=== PATIENT | female | born 1940 | race Caucasian/White ===

== ENCOUNTER 2017-05-15 07:54 | Day surgery (SDC) | payer OTHER ==
[~2017-05-15] VITALS: Ht 165.1 cm; Wt 80.7 kg
[2017-05-15] MEDS ORDERED: ASPI-110 PO (08:40)
[2017-05-15] MEDS ORDERED: IRON18TA PO (08:40)
[2017-05-15] MEDS ORDERED: PRAV80TA2 PO (08:40)
[2017-05-15] MEDS ORDERED: GARL1CAP6 PO (08:40)
[2017-05-15] MEDS ORDERED: LEVO25TA4 PO (08:40)
[2017-05-15] MEDS ORDERED: VITA2000 PO (08:40)
[2017-05-15] MEDS ORDERED: KRIL1000 PO (08:40)
[2017-05-15] MEDS ORDERED: VITA250T3 PO (08:40)
[2017-05-15] MEDS ORDERED: LISI20TA3 PO (08:40)
[2017-05-15] MEDS ORDERED: MULT1TAB46 PO (08:40)
[2017-05-15] MEDS ORDERED: AMLO5TAB2 PO (08:40)
[2017-05-15] MEDS ORDERED: METO50TA11 PO (08:41)
[2017-05-15] MEDS ORDERED: NS 1000P @30 MLS/HR (KVO) IV SCH (09:00)
[2017-05-15 09:05] VITALS: BP 142/71; PULSE 70; RESP 17; TEMP 98.9; O2SAT 94
[2017-05-15 09:26] LABS: AUTOMATED NEUTROPHIL # 3.6 TH/MM3 (1.8-7.7); BASOPHIL % 0.8 % (0.0-2.0); EOSINOPHIL # 0.1 TH/MM3 (0-0.4); HEMO FLAGS DIFF FINAL; LYMPH % 27.5 % (9.0-44.0); LYMPHOCYTE # 1.6 TH/MM3 (1.0-4.8); MEAN CELL VOLUME 78.7 FL (80.0-100.0); MEAN CORPUSCULAR HEMOGLOBIN 26.3 PG (27.0-34.0); MEAN CORPUSCULAR HGB CONC 33.4 % (32.0-36.0); MONO % 8.7 % (0.0-8.0); PLATELET COUNT 184 TH/MM3 (150-450); RED BLOOD COUNT 5.08 MIL/MM3 (4.00-5.30); RED CELL DISTRIBUTION WIDTH 20.5 % (11.6-17.2)
[2017-05-15 09:32] LABS: APTT (PATIENT) 26.9 SEC (24.3-30.1); INTERNATIONAL NORMALIZED RATIO 1.1 RATIO; PROTHROMBIN TIME - PATIENT 11.7 SEC (9.8-11.6)
[2017-05-15 09:36] LABS: BICARBONATE 27.8 MEQ/L (21.0-32.0); POTASSIUM 3.9 MEQ/L (3.5-5.1)
[2017-05-15] MEDS ORDERED: NITROGLYCERIN INJ 5 ML ONE (09:51)
[2017-05-15] MEDS ORDERED: VERAPAMIL HCL 5 MG/2 ML VIAL ONE (09:51)
[2017-05-15] MEDS ORDERED: MIDAZOLAM HCL 2 MG/2 ML VIAL ONE (09:51)
[2017-05-15] MEDS ORDERED: HEPARIN SODIUM - IV 10,000 UNITS/10 ML VIAL ONE (09:51)
[2017-05-15] MEDS ORDERED: HEPARIN-NS/PF INJ 500 ML ONE (09:51)
[2017-05-15] MEDS ORDERED: IOHEXOL 350 MG/ML 50 ML BTL (for Cath Lab) OTHER ONE (10:35)
--- NOTE | 2017-05-15 11:22 | CATHPROC ---
[facility] Report Study Information Study Number Admission Scheduled Start Study Start [id number] May 15 2017 7:54AM 05/15/2017 May 15 2017 9:41AM Study Type [place] Service Left/Possible PCI Cardiac Catheterization Admit Source Facility Department Other [facility] - Optomechanical Technician Physician and Clinical Staff Initial Xavier Navarro Ct Mri TechnologistOfe Shaffer,RN Ct Mri Technologistmiguelina Mi RN, Reynold RecordSherry Mai,CHIEF SOLUTION ARCHITECT TECH2 Scrub Liane Nicholas,RT(R) (BS) Procedures Performed Procedure Location (Site) Vessel Name Coronary Angiograms LCA Left Coronary Coronary Angiograms RCA Right Coronary L Heart Cath Equipment Time Guest Service Representative Description Size Mfg Part Number Used/Scraped TRANSDUCER, TRUWAVE [id number] 10:38 Swoop GARCIA * Used W/STOCKCOCK *[id number] 534-545T *[id number] 534-548T *[id number] 534-518T *[id number] 534-521T *[id number] 534-542T *[id number] 10:38 [employer] PACK, CCL CUSTOM * Used *[id number] 10:38 [employer] SUPPORT, ARTERIAL ADULT [id number] Used BAND, RADIAL COMPRESSION TR [id number] 11:10 Omniox 24CM Used SHORT 24 *[id number] 10:38 [employer] WIRE, 3MMJ .035 180CM 180CM Used *[id number] 10:38 NAMIC MANIFOLD, 4 PORT * Used *[id number] 10:38 [employer] OMNIPAQUE, 350 MG, 150ML 150ML [id number] Used [id number] 10:38 [facility] BLANKET,WARM AIR CCL * Used *[id number] SHEATH, FR6 TRANSRADIAL 10:38 Branded Reality FR 6 RM*[id number] Used SLENDER 10CM History: Current Medications Medication Dosage/Unit Route Frequency Last Date/Time Taken Statins (any) Synthroid NORVASC LISINOPRIL VITAMIN D LOPRESSOR ASA History: Allergies Allergy Reaction No Known Allergies History: Risk Factors Family History of Hypertension Dyslipidemia Previous NE Previous Heart Failure Premature CAD Yes Yes No No No Prior Valve Prior PCI Prior CABG Surgery No No No Cerebrovascular Peripheral Artery Chronic Lung On Dialysis Diabetes Disease Disease Disease No No No No No History: Stress Tests Stress or Imaging Studies Performed No History: Other Disease Selection Items Renal Failure/Insufficiency History: Other Current Smoker Method Quit Packs a Day Years Used Pack Years No Cigarettes 50 Years Ago 1 5 5 Labs Hgb (g/dl) Hct (%) RBC (MIL/MM3) WBC (l/cumm) Platelets (thousands) 11.60-17.00 35.00-51.00 4.00-5.90 4.00-11.00 150.00-450.00 13.4 40 5 6 184 Glucose (mg/dl) BUN (mg/dl) Creatinine (mg/dl) BUN:Creatinine (1:x) 74.00-106.00 7.00-18.00 0.50-1.30 10.00-20.00 101 27 1.1 24.5 Na (meq/l) K (meq/l) Cl (meq/l) CO2 (mmol/L) Ca (mg/dl) 136.00-145.00 3.50-5.10 98.00-107.00 21.00-32.00 8.50-10.10 139 3.9 104 27.8 9.2 PT (sec) PTT (sec) INR (PTT:PT) 9.80-11.60 24.30-30.10 0.90-1.10 11.7 26.9 1.1 CPK-MB (ng/ML) 0.50-3.60 Not Drawn Medication Medication Total Dose (Bolus/Oral) Medication Total Dosage/Unit 1% XYLOCAINE 20 mL FENTANYL 100 mcg OXYGEN 2 l/min RADIAL COCKTAIL 5 mL (Bolus) VERSED 2 mg Medications (Bolus/Oral) Medication Time Given Dosage/Unit Administered By Reason VERSED 05/15/2017 10:33:38 AM 1 mg Ofe Lockwood 1 mg VERSED given in lab by Ofe Lockwood, RN in Left Forearm via Peripheral IV. Ordered by Xavier Mayes. FENTANYL 05/15/2017 10:34:01 AM 50 mcg Ofe Lockwood 50 mcg FENTANYL given in lab by Ofe Lockwood, RN in Left Forearm via Peripheral IV. Ordered by Xavier Cortez. 1% XYLOCAINE 05/15/2017 10:35:11 AM 20 mL Xavier Coreas 20 mL 1% XYLOCAINE given in lab by Xavier Coreas in Right Radial via Subcutaneous. Ordered by Xavier Cortez. VERSED 05/15/2017 10:36:15 AM 1 mg Ofe Lockwood 1 mg VERSED given in lab by Ofe Lockwood RN in Left Forearm via Peripheral IV. Ordered by Xavier Mayes. Ntg 200mcg Verapamil 2.5mg Heparin RADIAL COCKTAIL 05/15/2017 10:36:59 AM 5 mL (Bolus) Xavier Coreas 2500U 5 mL (Bolus) RADIAL COCKTAIL given in lab by Xavier Croeas in Right Radial via Radial. Using [Christiana ution Name]. Ordered by Xavier Coreas. Reason: Ntg 200mcg Verapamil 2.5mg Heparin 2500U. FENTANYL 05/15/2017 10:37:20 AM 50 mcg Ofe Lockwood 50 mcg FENTANYL given in lab by Ofe Lockwood, ED in Left Forearm via Peripheral IV. Ordered by Xavier Cortez. OXYGEN 05/15/2017 10:38:41 AM 2 l/min Ofe Lockwood 2 l/min OXYGEN given in lab by Ofe Lockwood, ED via Nasal. Ordered by Xavier Coreas. Medication (Drip) Medication Time Given Dosage/Unit Concentration/Unit Diluent (ml) Solution IV Solutions 05/15/2017 9:51:06 AM 0 mL (IV) 500 NaCl .9 Patient arrived on IV Solutions in Left Forearm via Peripheral IV. Pump/Drip Flow = 20 ml/hr using Na Cl .9. IV Solutions 05/15/2017 9:52:30 AM 0 mL (IV) 500 NaCl .9 Patient arrived on IV Solutions in Left Forearm via Peripheral IV. Pump/Drip Flow = 125 ml/hr using N aCl .9. Ordered by Xavier Coreas. Initial Case Assessment Cardiovascular HR NIBP Chest Pain 80 131/69 0 Circulatory - Right Pulses Dorsalis Pedis Femoral Radial 1 2 2 Scale (0,1,2,3,4,d) Scale (0,1,2,3,4,d) Neurological State Oriented to time-place- Alert Moves all extremities person Respiration - General Respiration Rate SpO2 (%) (B/min) 16 99 Final Case Assessment Cardiovascular HR Rhythm NIBP Chest Pain 68 sr 111/52 0 Circulatory - Right Pulses Dorsalis Pedis Femoral Radial 1 2 2 Scale (0,1,2,3,4,d) Scale (0,1,2,3,4,d) Neurological State Oriented to time-place- Alert Moves all extremities person Respiration - General Respiration Rate SpO2 (%) O2 (lpm) (B/min) 16 96 2 Chronological Log Time Study Chronological Log 9:45:42 Patient arrived via Bed. 9:45:43 Patient Name, D.O.B, / Armband Verified By R.N. 9:48:44 Consent signed by the physician and the patient and verified by the Optomechanical Technician staff. 9:48:45 Pre-op and post- op instructions given; patient acknowledges understanding of instructions. 9:48:46 Verbal Stimulation=2 Physical Stimulation=2 Airway=2 Respiration=2 TOTAL=8. (0=absent, 1=li mited, 2=present) 9:48:48 Presedation assessment performed by Optomechanical Technician RN. 9:48:49 Allens test performed on the right radial and ulnar artery. 9:48:51 Patient has been NPO for More than 6Hrs. 9:48:53 Skin Breakdown-none 9:48:56 [place] Prominences Protected Vitals capture started with the following parameters, Patient=Adult, Interval=5 min, Initial Pr fdwnjk=098 mmHg, 9:49:53 Deflation Rate=5 mmHg 9:50:29 HR=84 bpm, DOYN=309/69 mmhg, OzA2=409.0 %, Resp=9 B/min, Pain=0, Gonzalez=2 9:51:04 A # 20 IV was noted in the Forearm (left). Grade = patent 9:51:06 Patient arrived on IV Solutions in Left Forearm via Peripheral IV. Pump/Drip Flow = 20 ml/hr using NaCl .9. Patient arrived on IV Solutions in Left Forearm via Peripheral IV. Pump/Drip Flow = 125 ml/hr u sing NaCl .9. Ordered 9:52:30 by Xavier Coreas. 9:53:12 History and physical on the chart or being dictated. Assessment: Initial Case, HR=80 BPM, ECRU=918/69 mmhg, Chest Pain=0 Right Pulses: Josué Ped=1, Femoral=2, Radial=2 9:53:13 Neurological: State=Alert, Ox3, BELTRAN Respiration: Resp=16 B/min, SpO2=99 % 9:53:16 Reference ECG taken 9:55:32 HR=80 bpm, LEJP=020/60 mmhg, SpO2=98.0 %, Resp=17 B/min 10:00:31 HR=77 bpm, BBZX=471/64 mmhg, SpO2=99.0 %, Resp=10 B/min 10:04:26 Right groin and right wrist prepped with 2% chlorhexidine, and draped after a 3 min. waitin g time. 10:05:28 HR=76 bpm, YTUY=336/68 mmhg, SpO2=98.0 %, Resp=10 B/min 10:08:17 MD paged 10:10:31 HR=71 bpm, XJYJ=259/59 mmhg, SpO2=97.0 %, Resp=12 B/min 10:10:32 Pressure channel 1 zeroed. 10:15:30 HR=67 bpm, ECXM=562/60 mmhg, SpO2=95.0 %, Resp=12 B/min 10:20:29 HR=68 bpm, FVTI=498/59 mmhg, SpO2=94.0 %, Resp=14 B/min 10:25:32 HR=75 bpm, ICZU=284/57 mmhg, SpO2=98.0 %, Resp=10 B/min 10:31:06 HR=66 bpm, MFAY=454/48 mmhg, SpO2=94.0 %, Resp=14 B/min 10:32:32 MD arrived. 10:33:38 1 mg VERSED given in lab by Ofe Lockwood RN in Left Forearm via Peripheral IV. Ordered by Xavier Coreas. 50 mcg FENTANYL given in lab by Ofe Lockwood RN in Left Forearm via Peripheral IV. Ordered by Lyudmila 10:34:01 Xavier. 10:34:39 Presedation re-assessment performed by Optomechanical Technician RN. Time Out. Correct patient, correct procedure,correct physician, power injector not loaded with contrast with surgical 10:34:41 team present. Time Out Concurred by MD and individual staff in procedure 10:35:10 Case Start 20 mL 1% XYLOCAINE given in lab by Xavier Coreas in Right Radial via Subcutaneous. Ordered by Lyudmila, 10:35:11 Xavier. 10:35:32 HR=63 bpm, GROB=236/54 mmhg, SpO2=92.0 %, Resp=16 B/min 10:36:15 1 mg VERSED given in lab by Ofe Lockwood, ED in Left Forearm via Peripheral IV. Ordered by Xavier Coreas. 10:36:23 Access site was Radial Artery. right A SHEATH, FR6 TRANSRADIAL SLENDER 10CM FR 6 was advanced into the Radial (right) using the Perc utaneous 10:36:52 technique. 5 mL (Bolus) RADIAL COCKTAIL given in lab by Xavier Coreas in Right Radial via Radial. Usin g [Solution Name]. 10:36:59 Ordered by Xavier Coreas. Reason: Ntg 200mcg Verapamil 2.5mg Heparin 2500U. 50 mcg FENTANYL given in lab by Ofe Lockwood, ED in Left Forearm via Peripheral IV. Ordered by Lyudmila, 10:37:20 Xavier. A JR 4.0 INFINITI CATHETER FR 5 was advanced over a wire. OMNIPAQUE, 350 MG, 150ML 150ML was us ed for 10:37:36 injections. 10:38:41 2 l/min OXYGEN given in lab by Ofe Lockwood, ED via Nasal. Ordered by Xavier Coreas. 10:39:25 NIBP STAT measurement started. 10:40:01 HR=69 bpm, NIBP=79/46 mmhg, SpO2=90.0 %, Resp=10 B/min Recorded Pressure: Ao, HR=66, Condition=Condition 1 10:41:12 (Aorta) Ao 84/49/63 10:41:54 Catheter was removed A JL 3.5 INFINITI CATHETER FR 5 was advanced over a wire. OMNIPAQUE, 350 MG, 150ML 150ML was us ed for 10:42:03 injections. 10:43:55 The LCA was injected and visualized at various angles. OMNIPAQUE, 350 MG, 150ML 150ML used . 10:46:01 HR=76 bpm, BVZX=248/59 mmhg, SpO2=95.0 %, Resp=13 B/min After removing the current catheter a AR MOD INFINITI CATHETER FR 5 was advanced over a WIRE, 3 MMJ .035 180CM 10:47:01 180CM. 10:50:31 HR=69 bpm, TIAO=201/57 mmhg, SpO2=94.0 %, Resp=14 B/min After removing the current catheter a AL 1 INFINITI CATHETER FR 5 was advanced over a WIRE, 3MM J .035 180CM 10:50:39 180CM. Unable to cannulate RCA After removing the current catheter a JR 4.0 INFINITI CATHETER FR 5 was advanced over a WIRE, 3 MMJ .035 180CM 10:53:24 180CM. Unable to cannulate RCA 10:55:32 HR=71 bpm, EJQD=582/62 mmhg, SpO2=95.0 %, Resp=14 B/min After removing the current catheter a MPA-2 INFINITI CATHETER FR 5 was advanced over a WIRE, 3M MJ .035 180CM 10:59:25 180CM. 11:00:36 HR=67 bpm, ULCY=690/52 mmhg, SpO2=95.0 %, Resp=14 B/min 11:00:44 The RCA was injected and visualized at various angles. OMNIPAQUE, 350 MG, 150ML 150ML used . 11:03:11 Catheter was removed 11:03:36 Case End Assessment: Final Case, HR=68 BPM, Rhythm=sr, MIJZ=358/52 mmhg, Chest Pain=0 Right Pulses: Josué Ped=1, Femoral=2, Radial=2 11:05:26 Neurological: State=Alert, Ox3, BELTRAN Respiration: Resp=16 B/min, SpO2=96 %, O2=2 lpm 11:05:35 HR=65 bpm, OSUR=706/52 mmhg, SpO2=96.0 %, Resp=16 B/min, Pain=0, Gonzalez=2 Radial Compression Device Used. 11 mLs of air placed in BAND, RADIAL COMPRESSION TR SHORT 24 24 CM. Affected 11:08:31 hand 97 % O2 saturation. 11:10:36 UPDD=673/47 mmhg, SpO2=97 % 11:11:03 No case complications noted. 11:11:05 Cine recording checked. 11:11:07 Bedside Report will be given. 11:11:09 Vitals capture stopped. 11:11:18 A Left Heart Cath was performed. 11:13:22 Patient moved to bed 11:15:26 Patient transported to DOCU End Study - Contrast Media Used In Study Contrast Total Opened (mL) Total Used (mL) Total Wasted (mL) Omnipaque 20 20 0 End Study - Maximum Contrast Load Max Contrast Load (mL) 366.7 End Study - Radiation Exposure Fluoro Time (minutes) 14.1 End Study - Sheaths Sheaths Pulled By Sheath Hold Time (min) Liane Nicholas End Study - Patient Disposition Complications Transferred To Telemetry Bed
[2017-05-15] MEDS ORDERED: ONDANSETRON HCL 4 MG/2 ML VIAL ONE (11:23)
--- NOTE | 2017-05-15 11:38 | MA ---
cc: ARYAN BILL DATE 05/15/2017 PROCEDURE PERFORMED 1. Left heart catheterization 2. Selective right and left coronary angiography PROCEDURE DESCRIPTION Consent is signed and the patient was brought into the cardiac labor relations officer in a fasting state. The right wrist and groin were prepped and draped in a sterile fashion using 1% lidocaine for local anesthesia. Using a micropuncture kit, a 6- Lao sheath was inserted into the right radial artery. Antispasmodic cocktail was given, then selective right and left coronary angiography was performed with a JL-3.5 and multiple portal catheters. Angiography was taken in multiple views. The aortic valve was not crossed given the patient has known severe aortic stenosis. The patient tolerated the procedure well without complications. Estimated blood loss less than 30 cc. TOTAL CONTRAST USED 20 cc The access site was closed with a TR band. Indication: Severe aortic stenosis/preoperative evaluation for AVR ANGIOGRAPHIC RESULTS 1. Left main is calcified, patent with BRYSON-III flow. 2. LAD is a transapical vessel. It has a significant 90% lesion in the proximal segment. This lesion is long and Aneurysmatic. The vessel has BRYSON- III flow. The diagonals are patent with BRYSON-III flow. 3. Left circumflex artery is a big vessel with minimal luminal irregularities. No obstructive coronary artery disease. It has three OM branches. The first two OM's are small, However the third one is big going all the way to the lateral wall and has nonobstructive coronary artery disease and BRYSON-III flow. 4. A small ramus vessel which is patent with BRYSON-III flow nonobstructive coronary artery disease. 5. The right coronary artery is a dominant vessel giving off blood supply to the PDA and has minimal luminal Irregularities. No significant obstructions. There are some small collaterals from the PDA giving blood supply to the proximal LAD to the septales. CONCLUSION 1. Severe symptomatic aortic stenosis. 2. Single vessel CAD of the proximal LAD. RECOMMENDATIONS The case was discussed with CT surgery, Dr. Kuhn for CABG and AVR. MD TRELL Rodríguez/RANJAN /11:21 AM /11:31 AM MTDD
--- NOTE | 2017-05-15 12:56 | PD.CONS ---
History of Present Illness Service CT Surgery Consult Requested By Dr. Parekh Reason for Consult CAD, aortic stenosis, aortic regurgitation, dyspnea Primary Care Physician Tsering Berumen MD Diagnoses: (1) Aortic stenosis (2) CAD (coronary artery disease) (3) Diastolic CHF due to valvular disease History of Present Illness 76y/o female presents for evaluation of a heart murmur. She has been followed for many years and a recent echo showed severe , mild AI as well as LVH. She underwent left heart cath by Dr. Parekh today and was found to have severe proximal LAD CAD. She denies exertional dyspnea, chest pain, palpitations, PND , orthopnea. She is being considered for AVR/CABG. Review of Systems Constitutional: COMPLAINS OF: Fatigue, DENIES: Diaphoretic episodes, Fever, Weight gain, Weight loss, Chills, Dizziness, Change in appetite, Night Sweats Endocrine: DENIES: Abnorml menstrual pattern, Heat/cold intolerance, Polydipsia , Polyuria, Polyphagia Eyes: DENIES: Blurred vision, Diplopia, Eye inflammation, Eye pain, Vision loss , Photosensitivity, Double Vision Ears, nose, mouth, throat: DENIES: Tinnitus, Hearing loss, Vertigo, Nasal discharge, Oral lesions, Throat pain, Hoarseness, Ear Pain, Running Nose, Epistaxis, Sinus Pain, Toothache, Odynophagia Respiratory: DENIES: Apneas, Cough, Snoring, Wheezing, Hemoptysis, Sputum production, Shortness of breath Cardiovascular: DENIES: Chest pain, Palpitations, Syncope, Dyspnea on Exertion , PND, Lower Extremity Edema, Orthopnea, Claudication Gastrointestinal: DENIES: Abdominal pain, Black stools, Bloody stools, Constipation, Diarrhea, Nausea, Vomiting, Difficulty Swallowing, Anorexia Genitourinary: DENIES: Abnormal vaginal bleeding, Dysmenorrhea, Dyspareunia, Sexual dysfunction, Urinary frequency, Urinary incontinence, Urgency, Hematuria , Dysuria, Nocturia, Vaginal discharge Musculoskeletal: DENIES: Joint pain, Muscle aches, Stiffness, Joint Swelling, Back pain, Neck pain Integumentary: DENIES: Abnormal pigmentation, Pruritus, Rash, Nail changes, Breast masses, Breast skin changes, Nipple discharge Hematologic/lymphatic: DENIES: Bruising, Lymphadenopathy Immunologic/allergic: DENIES: Eczema, Urticaria Neurologic: DENIES: Abnormal gait, Headache, Localized weakness, Paresthesias, Seizures, Speech Problems, Tremor, Poor Balance Psychiatric: DENIES: Anxiety, Confusion, Mood changes, Depression, Hallucinations, Agitation, Suicidal Ideation, Homicidal Ideation, Delusions Past Family Social History Allergies: Coded Allergies: No Known Allergies (Unverified , 05/15/17) Past Medical History AAA HTN DM - she states borderline hyperlipidemia arthritis Reported Medications Amlodipine 5mg po qd ASA 81mg po qd Iron 159mg po qd krill oil Levothyroxine 25 mcg po qd Lisinopril-HCTZ 20/25 half po qd Toprol XL 50mg po qd MVI 1 po qd Pravastatin 80mg po qd Vit C Vit D Family History Denies CAD, valve disease, cancer Social History Remote smoking hx Denies ETOH Physical Exam Vital Signs Vital Signs Date Time Temp Pulse Resp B/P Pulse Ox O2 Delivery O2 Flow Rate FiO2 05/15/17 09:05 98.9 70 17 142/71 94 Physical Exam GENERAL: This is a well-nourished, well-developed patient, in no apparent distress. SKIN: No rashes, ecchymoses or lesions. Cool and dry. HEAD: Atraumatic. Normocephalic. No temporal or scalp tenderness. EYES: Pupils equal round and reactive. Extraocular motions intact. No scleral icterus. No injection or drainage. ENT: Nose without bleeding, purulent drainage or septal hematoma. Throat without erythema, tonsillar hypertrophy or exudate. Uvula midline. Airway patent. NECK: Trachea midline. No JVD or lymphadenopathy. Supple, nontender, no meningeal signs. CARDIOVASCULAR: Regular rate and rhythm with 2/6 MIGUEL ANGEL at the RUSB. RESPIRATORY: Clear to auscultation. Breath sounds equal bilaterally. No wheezes , rales, or rhonchi. GASTROINTESTINAL: Abdomen soft, non-tender, nondistended. No hepato-splenomegaly , or palpable masses. No guarding. MUSCULOSKELETAL: Extremities without clubbing, cyanosis, or edema. No joint tenderness, effusion, or edema noted. No calf tenderness. Negative Homans sign bilaterally. NEUROLOGICAL: Awake and alert. Cranial nerves II through XII intact. Motor and sensory grossly within normal limits. Five out of 5 muscle strength in all muscle groups. Normal speech. Laboratory Laboratory Tests Test 05/15/17 08:58 White Blood Count 6.0 Red Blood Count 5.08 Hemoglobin 13.4 Hematocrit 40.0 Mean Corpuscular Volume 78.7 Mean Corpuscular Hemoglobin 26.3 Mean Corpuscular Hemoglobin 33.4 Concent Red Cell Distribution Width 20.5 Platelet Count 184 Mean Platelet Volume 8.2 Neutrophils (%) (Auto) 61.0 Lymphocytes (%) (Auto) 27.5 Monocytes (%) (Auto) 8.7 Eosinophils (%) (Auto) 2.0 Basophils (%) (Auto) 0.8 Neutrophils # (Auto) 3.6 Lymphocytes # (Auto) 1.6 Monocytes # (Auto) 0.5 Eosinophils # (Auto) 0.1 Basophils # (Auto) 0.0 CBC Comment DIFF FINAL Differential Comment Prothrombin Time 11.7 Prothromb Time International 1.1 Ratio Activated Partial 26.9 Thromboplast Time Sodium Level 139 Potassium Level 3.9 Chloride Level 104 Carbon Dioxide Level 27.8 Anion Gap 7 Blood Urea Nitrogen 27 Creatinine 1.14 Estimat Glomerular Filtration 46 Rate Random Glucose 101 Calcium Level 9.2 Result Diagram: 05/15/17 0858 05/15/17 0858 Imaging Left heart cath was remarkable for 90% proximal LAD lesion Course She underwent uneventful LHC today. Assessment and Plan Problem List: (1) Aortic stenosis Status: Acute (2) CAD (coronary artery disease) Status: Acute (3) Diastolic CHF due to valvular disease Status: Acute Assessment and Plan Based on her presentation and findings, AVR/CABG is recommended. Risks and benefits were explained as summarized below and she agrees to proceed. Plan for surgery 05/27/17. RISK SCORES About the STS Risk Calculator Procedure: AV Replacement + CAB Risk of Mortality: 2.453% Morbidity or Mortality: 17.919% Long Length of Stay: 8.579% Short Length of Stay: 28.902% Permanent Stroke: 2.173% Prolonged Ventilation: 11.52% DSW Infection: 0.377% Renal Failure: 5.424% Reoperation: 7.264% Problem Qualifiers (1) Aortic stenosis: Qualified Code: I35.0 - Aortic valve stenosis, unspecified etiology (2) CAD (coronary artery disease): Qualified Code: I25.118 - Coronary artery disease involving [place] coronary artery of [place] heart with other form of angina pectoris Adriana Kuhn MD May 15, 2017 12:56
[2017-05-15 15:38] LABS: BLOOD, URINE NEG (NEG); COMMENT (UR) CULT NOT INDICATED; CULTURE IF INDICATED CULT NOT INDICATED; GLUCOSE,URINE NEG (NEG); HYALINE CAST, URINE 1 /lpf (RARE); KETONE, URINE NEG (NEG); MUCUS URINE FEW /lpf (OCC); NITRITE,URINE NEG (NEG); URINE COLOR YELLOW (YELLW/STRAW)
[2017-05-15] MEDS ORDERED: METOPROLOL TARTRATE 25 MG TAB PO SCH (15:45)
[2017-05-15] MEDS ORDERED: PAPAVERINE INJ 60 MG, NITROGLYCERIN INJ 100 MCG, DILTIAZEM INJ 100 MG in SODIUM CHLORID... IRRIGATION SCH (15:45)
[2017-05-15] MEDS ORDERED: CEFAZOLIN INJ 500 MG in SODIUM CHLORIDE 0.9% IRR BTL 500 ML IRRIGATION SCH (15:45)
[2017-05-15] MEDS ORDERED: CHLORHEXIDINE GLUCONATE 4% SOLN 120 ML BTL TOPICAL SCH (15:45)
[2017-05-15] MEDS ORDERED: ceFAZolin 2 GM PREMIX 50 ML IV SCH (15:45)
[2017-05-15] MEDS ORDERED: SODIUM CHLORIDE 0.9% FLUSH 10 ML FLUSH IV FLUSH PRN (15:45)
[2017-05-15] MEDS ORDERED: INSULIN REGULAR (IV INFUSION) 100 UNITS in SODIUM CHLORIDE 0.9% INJ 100 ML IV SCH (15:45)
--- NOTE | 2017-05-15 16:10 | EKG ---
Date Performed: 05/15/2017 Time Performed: 09:21:00 PTAGE: 76 years EKG: Sinus rhythm Lateral ST-T changes may be due to myocardial ischemia Abnormal ECG NO PREVIOUS TRACING DOCTOR: Elizabeth Wasserman Interpretating Date/Time 05/15/2017 16:09:28
[2017-05-15 17:12] LABS: INDIRECT BILIRUBIN 0.3 MG/DL (0.0-0.8); TOTAL BILIRUBIN ADULT 0.4 MG/DL (0.2-1.0)
--- NOTE | 2017-05-15 17:36 | RADRPT ---
EXAM DATE/TIME: 05/15/2017 16:55 [facility] COMPARISON: No previous studies available for comparison. INDICATIONS : Evaluate for pneumonia, pneumothorax or communicable disease. Pre op heart surgery MEDICAL HISTORY : None. SURGICAL HISTORY : None. ENCOUNTER: Initial ACUITY: 1 day PAIN SCORE: 0/10 LOCATION: Bilateral chest FINDINGS: The exam demonstrates 2 pulmonary nodules is 1.5 mm nodule on the right and 1.7 mm nodule on the left . CT imaging to exclude malignancy as warranted. The heart is normal in size. The mediastinal contours are within normal limits. CONCLUSION: 1. There are bilateral pulmonary nodules. CT imaging to exclude malignancy as warranted. Davidson Jordan MD on May 15, 2017 at 17:28 Board Certified Radiologist. This report was verified electronically.
--- NOTE | 2017-05-15 19:38 | RADRPT ---
EXAM DATE/TIME: 05/15/2017 15:26 [facility] COMPARISON: No previous studies available for comparison. INDICATIONS : Pre op cardiac surgery. MEDICAL HISTORY : Congestive heart failure. Aneurysm, abdominal. Hypothyroidism. Hypertension. Coronary artery disease. Arthritis. Aortic valve stenosis. Renal disease. Irregular heartbeat. Pericardial effusion. 1st degr ee heart block. SURGICAL HISTORY : Cardiac catheterization. ENCOUNTER: Initial ACUITY: 1 day PAIN SCORE: 0/10 LOCATION: Bilateral legs. TECHNIQUE: Venous ultrasound of the left and right leg was performed from the inguinal ligament to the proximal calf. Real-time, color Doppler and spectral tracing, compression and augmentation techniques were us ed. FINDINGS: RIGHT LEG: There is normal compressibility of the deep venous system from the inguinal region to the proximal ca lf. No echogenic clot is seen in the lumen of the common femoral, femoral, popliteal, and posterior tibial veins. There is a normal response of the venous system to proximal and distal augmentation an d respiration. LEFT LEG: There is normal compressibility of the deep venous system from the inguinal region to the proximal ca lf. No echogenic clot is seen in the lumen of the common femoral, femoral, popliteal, and posterior tibial veins. There is a normal response of the venous system to proximal and distal augmentation an d respiration. CONCLUSION: Normal examination. Krutis Agustin Jr., MD on May 15, 2017 at 19:35 Board Certified Radiologist. This report was verified electronically.
--- NOTE | 2017-05-15 19:39 | RADRPT ---
EXAM DATE/TIME: 05/15/2017 15:39 [facility] COMPARISON: No previous studies available for comparison. INDICATIONS : Pre op cardiac surgery. MEDICAL HISTORY : Hypothyroidism. Aneurysm, abdominal. Congestive heart failure. Hypertension. Coronary artery disease. Arthritis. Aortic valve stenosis. Renal disease. Irregular heartbeat. Pericardial effusion. 1st degr ee heart block. SURGICAL HISTORY : Cardiac catheterization. ENCOUNTER: Initial ACUITY: 1 day PAIN SCORE: 0/10 LOCATION: Bilateral legs. GREATER SAPHENOUS VEIN THIGH: PROXIMAL: Right 6 mm Left 8 mm MID: Right 5 mm Left 4 mm DISTAL: Right 4 mm Left 3 mm CALF: PROXIMAL: Right 5 mm Left 2 mm MID: Right 4 mm Left 2 mm DISTAL: Right 3 mm Left 3 mm FINDINGS: The venous system of the lower extremities are patent by color Doppler imaging. Measurements of the leg veins (in mm) are listed above. CONCLUSION: Venous mapping as detailed above. Kurtis Agustin Jr., MD on May 15, 2017 at 19:36 Board Certified Radiologist. This report was verified electronically.
--- NOTE | 2017-05-15 19:50 | RADRPT ---
EXAM DATE/TIME: 05/15/2017 16:03 [facility] COMPARISON: No previous studies available for comparison. INDICATIONS : Pre op cardiac surgery. MEDICAL HISTORY : Congestive heart failure. Hypothyroidism. Aneurysm, abdominal. Hypertension. Coronary artery disease. Arthritis. Aortic valve stenosis. Renal disease. Irregular heartbeat. Pericardial effusion. 1st degr ee heart block. SURGICAL HISTORY : Cardiac catheterization. ENCOUNTER: Initial ACUITY: 1 day PAIN SCORE: 0/10 LOCATION: Bilateral neck PEAK SYSTOLIC VELOCITIES (cm/sec): ICA/CCA RATIO: Right: 1.3 Left: 1.6 ICA: Right: 111 Left: 105 CCA: Right: 88 Left: 66 ECA: Right: 71 Left: 59 VERTEBRAL: Right: 82 antegrade Left: 51 antegrade Elevated flow velocities and ICA/CCA ratios have been found to correlate with increased degrees of vessel stenosis, calculated as percentage of diameter relative to a normal segment of distal ICA/CCA FINDINGS: RIGHT CAROTID: Calcified plaque involving the proximal ICA. No significant stenosis is visualized. The waveforms ar e within normal limits. LEFT CAROTID: Calcified plaque involving the carotid bulb and proximal ICA. No significant stenosis is visualized. The waveforms are within normal limits. VERTEBRAL ARTERIES: Antegrade flow is seen in both vertebral arteries. MISCELLANEOUS: None. CONCLUSION: 1. Calcified plaque without a hemodynamically significant stenosis. 2. Antegrade flow involving both vertebral arteries. Kurtis Agustin Jr., MD on May 15, 2017 at 19:45 Board Certified Radiologist. This report was verified electronically.
[2017-05-15] MEDS ORDERED: SODIUM CHLORIDE 0.9% FLUSH 10 ML FLUSH IV FLUSH SCH (21:00)
--- NOTE | 2017-05-19 11:12 | RSPPFT ---
DATE OF PROCEDURE: 05/15/17 COMMENTS: Spirometry with FVC of 1.5 at 53% of predicted, FEV1 of 0.9 at 52%, FEV1/FVC ratio is normal. Flow is decreased at FEF 25-75. Flow volume loop is not interpretable. IMPRESSION: 1. Findings are suggestive of restrictive lung disease. 2. Mild small airways obstructive lung disease. 3. Patient will need a complete pulmonary function study for further evaluation.
== END 2017-05-15 17:32 | disposition home or self-care (01) ==
LOC: HDOC 07:54 → HDIC 07:57 → HDOC 17:32
PROVIDERS: ATTEND Radiology Vascular & Interventional Radiology
DX: I25.10 Atherosclerotic heart disease of native coronary artery without angina pectoris (principal); I35.0 Nonrheumatic aortic (valve) stenosis; I50.31 Acute diastolic (congestive) heart failure; I10 Essential (primary) hypertension; E11.9 Type 2 diabetes mellitus without complications; E78.5 Hyperlipidemia, unspecified; M19.90 Unspecified osteoarthritis, unspecified site
CPT/HCPCS: 71020; 80048; 80076; 81001; 85025; 85610; 85730; 86077; 86850; 86870; 86900; 86901; 86920; 86922; 87641; 93005; 93454; 93880; 93970; 93998; 94010; C1769; C1893; J1644; J2250; J2405; J3010; Q9967

== ENCOUNTER 2017-05-21 14:46 | Inpatient (IN) | payer OTHER, MEDICARE ==
[~2017-05-21] VITALS: Ht 165.1 cm; Wt 93.0 kg
[~2017-05-21 14:46] MED LIST: AMLO5TAB2 PO; ASPI-110 PO; IRON18TA PO; LEVO25TA4 PO; LISI20TA3 PO; METO50TA11 PO; MULT1TAB46 PO; PRAV80TA2 PO
[2017-05-25] MEDS ORDERED: D31000CA PO (13:55)
[2017-05-25] MEDS ORDERED: ASCO1CAP PO (13:55)
[2017-05-25] MEDS ORDERED: KRIL1CAP2 PO (13:55)
[2017-05-25] MEDS ORDERED: GARL500C PO (13:55)
[2017-05-27] VITALS (17 sets, daily range): BP systolic 83–113; BP diastolic 35–60; PULSE 51–83; RESP 10–18; TEMP 96.3–97.8; O2SAT 92–99
[2017-05-27] MEDS ORDERED: MAGNESIUM SULFATE 1000 MG/2 ML VIAL (PED) IV ONE (05:00)
[2017-05-27] MEDS ORDERED: AMINOCAPROIC ACID INJ 250 MG/ML 20 ML VIAL IV ONE ×2 (05:00→11:50)
[2017-05-27] MEDS ORDERED: PROTAMINE SULFATE 250 MG/25 ML VIAL IV ONE ×2 (05:00→11:50)
[2017-05-27] MEDS ORDERED: VECURONIUM BROMIDE 10 MG VIAL IV ONE (05:00)
[2017-05-27] MEDS ORDERED: GLYCOPYRROLATE 0.2 MG/ML VIAL IV ONE (05:00)
[2017-05-27] MEDS ORDERED: NITROGLYCERIN-DEXTROSE INJ 250 ML IV ONE (05:00)
[2017-05-27] MEDS ORDERED: NEOSTIGMINE METHYLSULFATE 10 MG/10 ML VIAL IV PUSH ONE (05:00)
[2017-05-27] MEDS ORDERED: HEPARIN SODIUM - SQ 10,000 UNITS/ML VIAL SQ ONE (05:00)
[2017-05-27] MEDS ORDERED: ARTIFICIAL TEARS OPTH OINT 3.5 APPLIC/3.5 GM TUBO ONE (05:00)
[2017-05-27] MEDS ORDERED: PHENYLEPHRINE HCL 10 MG/ML VIAL IV ONE (05:00)
[2017-05-27] MEDS ORDERED: CALCIUM CHLORIDE 10% SOLN 1 GRAM/10 ML SYR IV ONE (05:00)
[2017-05-27] MEDS ORDERED: SODIUM CHLORID 0.9% 500 ML IV PRN (06:00)
[2017-05-27] MEDS ORDERED: SODIUM CHLORIDE 0.9% FLUSH 10 ML FLUSH IV FLUSH PRN ×3 (06:00→10:45)
[2017-05-27] MEDS ORDERED: INSULIN REGULAR 100 UNITS in NS 100 ML IV SCH (06:00)
[2017-05-27] MEDS ORDERED: ceFAZolin 2 GM PREMIX 50 ML IV SCH (06:00)
[2017-05-27] MEDS ORDERED: POVIDONE IODINE 5% (ANTISEPSIS KIT) 4 APPLICATIONS EACH NARE PRN (06:00)
[2017-05-27] MEDS ORDERED: CHLORHEXIDINE GLUCONATE 4% SOLN 120 ML BTL TOPICAL SCH (06:00)
[2017-05-27] MEDS ORDERED: PAPAVERINE 60 MG-NITROGLYCERIN 100 MCG-DILTIAZEM 100 MG in NS 100 ML IRRIGATION SCH ×4 (06:00)
[2017-05-27] MEDS ORDERED: CHLORHEXIDINE GLUCONATE 2 % 1 PACK (2 CLOTHS) TOPICAL PRN (06:00)
[2017-05-27] MEDS ORDERED: METOPROLOL TARTRATE 25 MG TAB PO PRN (06:00)
[2017-05-27] MEDS ORDERED: CEFAZOLIN 500 MG in NS IRR BTL 500 ML IRRIGATION SCH (06:00)
[2017-05-27] MEDS ORDERED: LACTATED RINGER'S 1000 ML IV PRN (06:00)
[2017-05-27] MEDS ORDERED: INSULIN HUMAN REGULAR 1,000 UNITS/10 ML VIAL SQ PRN (06:00)
[2017-05-27] MEDS ORDERED: METOPROLOL TARTRATE 25 MG TAB PO SCH (06:00)
[2017-05-27] MEDS ORDERED: ceFAZolin 2 GM PREMIX 50 ML ONE (06:32)
[2017-05-27] MEDS ORDERED: VANCOMYCIN HCL 1000 MG VIAL ONE (06:32)
[2017-05-27] MEDS ORDERED: methylPREDNISolone SOD SUCC 125 MG/2 ML VIAL ONE (06:33)
[2017-05-27] MEDS ORDERED: HEPARIN SODIUM - SQ 10,000 UNITS/ML VIAL ONE (06:33)
[2017-05-27] MEDS ORDERED: POTASSIUM CHLOR 20 MEQ PREMIX 100 ML ONE ×2 (07:02→10:36)
[2017-05-27] MEDS ORDERED: DEXMEDETOMIDINE HCL 200 MCG/2 ML VIAL ONE (07:03)
[2017-05-27] MEDS ORDERED: ACETAMINOPHEN 1000 MG/100 ML VIAL IV ONE (07:03)
[2017-05-27] MEDS ORDERED: CUSTODIOL HTK IRR SOLN 1,000 ML ONE (07:18)
[2017-05-27] MEDS ORDERED: HEPARIN SODIUM - IV 10,000 UNITS/10 ML VIAL ONE (07:18)
[2017-05-27] MEDS ORDERED: MANNITOL INJ 50 ML ONE (07:19)
[2017-05-27] MEDS ORDERED: ALBUMIN HUMAN 25% 12.5 GM/50 ML BAGP IV ONE (07:19)
[2017-05-27] MEDS ORDERED: POTASSIUM CHLORIDE 40 MEQ/20 ML VIAL ONE (07:19)
[2017-05-27] MEDS ORDERED: CHLORHEXIDINE GLUCONATE 2 % 1 PACK (2 CLOTHS) TOPICAL ONE (07:42)
--- NOTE | 2017-05-27 08:55 | PD.CAR.PN ---
CVT Progress Note Subjective/Hospital Course: 76/ female hx of aortic valve stenosis ( LUCY 0.5, underwent cardiac cath 05/[address] Parekh , found to have 90% lesion in prox LAD PMH: aortic stenosis , AAA 2.9x3.3 02/06, arthritis, CKD stage 3, HLP, HTN for surgery today Objective: Vital Signs Date Time Temp Pulse Resp B/P Pulse Ox O2 Delivery O2 Flow Rate FiO2 05/27/17 06:14 97.8 65 16 113/60 98 Labs: Laboratory Tests Test 05/27/17 06:21 Blood Type O NEGATIVE Antibody Screen POSITIVE Crossmatch Leukocyte-Reduced Red Blood Cells Blood Bank Comment (1) Aortic stenosis (2) CAD (coronary artery disease) (3) Diastolic CHF due to valvular disease (4) Hyperlipemia (5) Chronic kidney disease (6) Hypertension Holly Ball May 27, 2017 08:55
[2017-05-27] MEDS ORDERED: PROTAMINE SULFATE 50 MG/5 ML VIAL ONE (09:30)
[2017-05-27] MEDS ORDERED: LACTATED RINGER'S 1000 ML INJ 500 ML IV PRN (10:34)
[2017-05-27] MEDS ORDERED: CALCIUM CHLORIDE 10% 1 GRAM/10 ML VIAL IV PRN (10:45)
[2017-05-27] MEDS ORDERED: ACETAMINOPHEN 650 MG SUPP RECTAL PRN (10:45)
[2017-05-27] MEDS ORDERED: CALCIUM CHLORIDE INJ 1 GM in SODIUM CHLORIDE 0.9% INJ 100 ML IV PRN (10:45)
[2017-05-27] MEDS ORDERED: DEXTROSE 50% IN WATER 50 ML VIAL(D50) IV PUSH PRN (10:45)
[2017-05-27] MEDS ORDERED: RESP: ALBUTEROL 2.5 MG/IPRATROPIUM 0.5 MG NEB (PRN) NEB (10:45)
[2017-05-27] MEDS ORDERED: METOPROLOL TARTRATE 5 MG/5 ML VIAL IV PUSH PRN (10:45)
[2017-05-27] MEDS ORDERED: POTASSIUM CHLOR 20 MEQ PREMIX 100 ML IV PRN ×2 (10:45)
[2017-05-27] MEDS ORDERED: ACETAMINOPHEN 325 MG TAB PO PRN (10:45)
[2017-05-27] MEDS ORDERED: hydrALAZINE HCL 20 MG/ML VIAL IV PRN (10:45)
[2017-05-27] MEDS ORDERED: MAGNESIUM SULFATE INJ 2 GM in SODIUM CHLORIDE 0.9% INJ 100 ML IV PRN ×4 (10:45)
--- NOTE | 2017-05-27 10:49 | PD.OP ---
cc: Xavier Coreas MD; Adriana Kuhn MD Operative Report Date of Surgery: May 27, 2017 Preoperative Diagnosis: (1) CAD (coronary artery disease) (2) Aortic stenosis (3) Diastolic CHF due to valvular disease Postoperative Diagnosis: same Procedure: AVR with a 21 Intuity tissue valve CABG x 1 VILLA to LAD - good GERARDO Anesthesia: Dr. Washington Surgeon: Adriana Kuhn Safety Sealer(s): JORGE Earl Operation and Findings: Cross-clamp time 61 minutes Cardiopulmonary bypass time 81 minutes Drains 36 Bulgarian mediastinum and 32 Bulgarian left pleural chest tubes Findings: The patient had a heavily calcified trileaflet aortic valve. The LAD target was good in quality. At the conclusion of the procedure, intraoperative GERARDO showed a well-seated aortic valve with no perivalvular leaks. Left ventricular function was normal. Disposition: The patient was transferred to the CVICU in stable. Operation in detail: After adequate general anesthesia, the patient was prepped and draped in the usual manner. A median sternotomy was performed and electrocautery was used to obtain hemostasis. Left internal mammary artery was procured as a pedicle from the 7th ribs to the 1st rib in the usual manner. The pericardium was opened and the distal mammary artery was instrumented for anastomosis after adequate heparinization for cardiopulmonary bypass. The heart was instrumented for cardiopulmonary bypass in the usual manner. Antegrade Custodiol cardioplegia was used. The left ventricle was vented through the right superior pulmonary vein. The patient was placed on cardiopulmonary bypass and target vessel was identified. An aortic cross-clamp was applied and the heart was arrest is using cold Custodiol antegrade cardioplegia. After adequate arrest, the distal LAD was opened with a [place] blade and found to be a 1-1/2 millimeters good target. The left internal mammary artery was approximated to the LAD using a running 7 0 Prolene suture. The pedicle was tacked to the epicardium using interrupted 5 0 silk suture. The aorta was vented and opened above the sinotubular ridge. The valve was found to be trileaflet. There was heavy calcification. Aortic valve was excised sharply and the annulus was decalcified using rongeurs. The annulus was sized to a 21 Intuity bioprosthetic valve which was seated with a suture in each cusp and balloon deployed. After seating the valve and securing the sutures, the aorta was repaired in 2 layers using running 4-0 Prolene suture. The patient was placed in steep Trendelenburg position. The aorta and left ventricle were vented and the aortic cross-clamp was removed for a total cross-clamp time of 61 minutes. The heart resumed a sinus rhythm. The heart was filled allowed to eject. The aortic valve replacement was then assessed by intraoperative GERARDO. The valve was found to be well seated with no perivalvular leak. Left ventricular function was noted to be normal. The patient was weaned from cardiopulmonary bypass for total bypass run of 81 minutes. Protamine was administered to reverse the heparin and all cannulae were removed without incident. A 36 Bulgarian mediastinal/ 32 Bulgarian left pleural chest tubes were positioned and each was secured to the skin with a 0 silk suture. The operative field was then examined again for hemostasis which was obtained using electrocautery. The wound was then closed in layers by approximating the sternal tables with interrupted number 6 stainless steel wires following which the presternal fashion was approximately around a 1. PDS suture. The wound was copiously irrigated. The subcutaneous tissue was approximated using a running 2-0 Vicryl suture and the skin was approximated with running 4-0 Monocryl subcuticular stitch. All sponge and instrument counts were correct at the close of the procedure and the patient was transported the CVICU in stable condition. Adriana Kuhn M.D., F.A.C.C., F.A.C.S. Adriana Kuhn MD May 27, 2017 10:49
[2017-05-27] MEDS ORDERED: ceFAZolin INJ 1,000 MG VIAL ONE (10:58)
[2017-05-27] MEDS ORDERED: Post-op Orders (for Pharmacy) MISC OTHER ONE (11:07)
[2017-05-27] MEDS ORDERED: MIDAZOLAM HCL 5 MG/5 ML VIAL ONE ×2 (11:30)
[2017-05-27] MEDS ORDERED: fentaNYL CITRATE 1000 MCG/20 ML VIAL ONE (11:30)
[2017-05-27] MEDS ORDERED: DOPamine INJ PREMIX 500 ML ONE (11:39)
[2017-05-27] MEDS ORDERED: ALBUMIN HUMAN 5% 12.5 GM/250 ML BOTTLE IV ONE ×2 (11:49→16:00)
[2017-05-27] MEDS ORDERED: ONDANSETRON HCL 4 MG/2 ML VIAL IV PUSH ONE (11:50)
[2017-05-27] MEDS ORDERED: LACTATED RINGER'S 1000 ML INJ 2,000 ML IV ONE (11:51)
[2017-05-27] MEDS ORDERED: SODIUM CHLORIDE 0.9% INJ 100 ML IV ONE (11:51)
[2017-05-27] MEDS ORDERED: SODIUM CHLOR 0.9% 250 ML INJ 500 ML IV ONE (11:53)
[2017-05-27] MEDS ORDERED: NORMOSOL R INJ 2,000 ML IV ONE (11:54)
--- NOTE | 2017-05-27 12:25 | RADRPT ---
EXAM DATE/TIME: 05/27/2017 11:23 [facility] COMPARISON: No previous studies available for comparison. INDICATIONS : Post CABG. MEDICAL HISTORY : Congestive heart failure. Hypothyroidism. Aneurysm, abdominal. Hypertension. SURGICAL HISTORY : Cardiac catheterization. ENCOUNTER: Subsequent ACUITY: 1 week PAIN SCORE: Non-responsive. LOCATION: Bilateral chest FINDINGS: ET tube, central venous catheter, mediastinal drain and left chest tube are in good position. Heart is enlarged. There is mild interstitial edema present. There is no alveolar consolidation, pleural effusion, or pneumothorax. CONCLUSION: 1. Support apparatus in good position. 2. There is no pneumothorax. Willie Jordan MD FACR on May 27, 2017 at 12:13 Board Certified Radiologist. This report was verified electronically.
[2017-05-27] MEDS: POTASSIUM CHLOR 20 MEQ PREMIX 100 ML IV PRN ×2 (13:00→17:34)
[2017-05-27] MEDS ORDERED: CLEVIDIPINE INJ 50 ML IV SCH (14:00)
[2017-05-27] MEDS ORDERED: INSULIN REGULAR (IV INFUSION) 100 UNITS in SODIUM CHLORIDE 0.9% INJ 99 ML IV SCH (15:00)
[2017-05-27] MEDS ORDERED: RESP: RACEPINEPHRINE 2.25% 0.5 ML NEB NEB PRN (15:00)
[2017-05-27] MEDS ORDERED: POTASSIUM CHLORIDE 20 MEQ CONTROLLED RELEASE TAB PO PRN ×2 (15:00)
[2017-05-27] MEDS ORDERED: DOPamine 800 MG/D5W PREMIX 500 ML IV SCH (16:00)
[2017-05-27] MEDS: ACETAMINOPHEN 1000 MG/100 ML VIAL IV SCH ×2 (16:29→20:07)
[2017-05-27] MEDS: ONDANSETRON HCL 4 MG/2 ML VIAL IV PUSH PRN (16:34)
[2017-05-27] MEDS: RESP: ALBUTEROL 2.5 MG/IPRATROPIUM 0.5 MG NEB (SCH) NEB ×2 (17:15→21:43)
[2017-05-27] MEDS: oxyCODONE/ACETAMINOPHEN 5 MG/325 MG TAB PO PRN ×2 (20:07→23:39)
[2017-05-27] MEDS: CHOLECALCIFEROL (VIT D3) 1000 UNIT TAB PO SCH (20:07)
[2017-05-28] VITALS (18 sets, daily range): BP systolic 91–126; BP diastolic 44–74; PULSE 70–108; RESP 12–20; TEMP 97.9–98.3; O2SAT 92–100
[2017-05-28] MEDS: ACETAMINOPHEN 1000 MG/100 ML VIAL IV SCH ×2 (02:23→09:00)
[2017-05-28] MEDS: ONDANSETRON HCL 4 MG/2 ML VIAL IV PUSH PRN ×2 (02:23→13:09)
[2017-05-28] MEDS: oxyCODONE/ACETAMINOPHEN 5 MG/325 MG TAB PO PRN ×4 (03:57→11:28)
[2017-05-28] MEDS: RESP: ALBUTEROL 2.5 MG/IPRATROPIUM 0.5 MG NEB (SCH) NEB ×3 (04:12→20:36)
--- NOTE | 2017-05-28 04:20 | RADRPT ---
EXAM DATE/TIME: 05/28/2017 03:38 [facility] COMPARISON: CHEST SINGLE AP, May 27, 2017, 11:23. INDICATIONS : Shortness of breath, possible pulmonary disease. MEDICAL HISTORY : Congestive heart failure. Hypertension Renal failure, chronic. CAD Aortic stenosis SURGICAL HISTORY : CABG. ENCOUNTER: Subsequent ACUITY: 1 week PAIN SCORE: Non-responsive. LOCATION: Bilateral chest FINDINGS: A single view of the chest demonstrates minimal left basilar density likely atelectasis. Left-sided c hest tube without pneumothorax. Status post CABG. Left subclavian central line unchanged. The cardio mediastinal contours are unremarkable. Osseous structures are intact. CONCLUSION: 1. Status post CABG. 2. Left-sided chest tube without pneumothorax. 3. Left basilar atelectasis. Paul Aguilar MD on May 28, 2017 at 4:18 Board Certified Radiologist. This report was verified electronically.
[2017-05-28 04:35] LABS: HEMATOCRIT 28.6 % (35.0-46.0); MEAN CELL VOLUME 81.4 FL (80.0-100.0); MEAN CORPUSCULAR HEMOGLOBIN 26.5 PG (27.0-34.0); MEAN CORPUSCULAR HGB CONC 32.6 % (32.0-36.0); PLATELET COUNT 126 TH/MM3 (150-450); RED BLOOD COUNT 3.51 MIL/MM3 (4.00-5.30); RED CELL DISTRIBUTION WIDTH 18.3 % (11.6-17.2); REVIEW FLAG FINAL; WHITE BLOOD COUNT 13.1 TH/MM3 (4.0-11.0)
[2017-05-28 04:58] LABS: BICARBONATE 25.8 MEQ/L (21.0-32.0); MAGNESIUM 1.9 MG/DL (1.5-2.5); POTASSIUM 4.2 MEQ/L (3.5-5.1)
[2017-05-28] MEDS: PANTOPRAZOLE SOD 40 MG DELAYED RELEASE TAB PO SCH (06:27)
[2017-05-28] MEDS: LEVOTHYROXINE SODIUM 25 MCG TAB PO SCH (06:27)
[2017-05-28] MEDS ORDERED: SODIUM CHLOR 0.45% 500 ML INJ 500 ML IV ONE (07:30)
[2017-05-28] MEDS ORDERED: MULTIVITAMIN TAB PO SCH (09:00)
[2017-05-28] MEDS ORDERED: METOPROLOL SUCCINATE 25 MG EXTENDED RELEASE TAB PO SCH (09:00)
[2017-05-28] MEDS ORDERED: ASCORBIC ACID 500 MG TAB PO SCH (09:00)
[2017-05-28] MEDS: CHOLECALCIFEROL (VIT D3) 1000 UNIT TAB PO SCH ×2 (09:02→20:58)
[2017-05-28] MEDS: ASPIRIN EC 81 MG TABEC PO SCH (09:02)
[2017-05-28] MEDS: ASCORBIC ACID 500 MG TAB PO SCH ×2 (09:02→20:58)
[2017-05-28] MEDS: FERROUS SULFATE 325 MG (65 MG ELEMENTAL IRON) TAB PO SCH (09:02)
[2017-05-28] MEDS: PRAVASTATIN SOD 80 MG TAB PO SCH (09:02)
[2017-05-28] MEDS ORDERED: DEXTROSE 50% IN WATER 50 ML VIAL(D50) IV PRN (09:15)
[2017-05-28] MEDS ORDERED: BISACODYL 10 MG SUPP RECTAL PRN (09:15)
[2017-05-28] MEDS ORDERED: GLUCAGON 1 MG/ML VIAL OTHER PRN (09:15)
[2017-05-28] MEDS ORDERED: SOD PHOSPHATE/SOD BIPHOSPHATE (ADULT) ENEMA 133ML RECTAL PRN (09:15)
[2017-05-28] MEDS ORDERED: PILL SPLITTER OTHER PRN (09:30)
--- NOTE | 2017-05-28 10:52 | PD.CAR.PN ---
CVT Progress Note Subjective/Hospital Course: 76/ female hx of aortic valve stenosis ( LUCY 0.5, underwent cardiac cath 05/[address] Parekh , found to have 90% lesion in prox LAD PMH: aortic stenosis , AAA 2.9x3.3 02/06, arthritis, CKD stage 3, HLP, HTN surgery: AVR with a 21 Intuity tissue valve, CABG x 1, VILLA to LAD - good, GERARDO 05/27 crystalloid 1800cc, 500cc cell saver, 1000 EBL, 750cc urine required IV bolus and dopamine post surgery 05/28 Dopamine weaned off, after receiving additional fluid bolus up in chair, painful from chest tubes dose of toradol given continue pulm toileting keep chest tubes in , plan to transfer to stepdown Objective: Vital Signs Date Time Temp Pulse Resp B/P Pulse Ox O2 Delivery O2 Flow Rate FiO2 05/28/17 07:45 92 Nasal Cannula 6.00 05/28/17 07:45 97.9 97 18 101/63 92 93/49 05/28/17 07:20 97.9 05/28/17 07:00 92 05/28/17 03:00 77 05/28/17 03:00 98.2 70 12 91/54 94 112/44 05/28/17 03:00 96 Nasal Cannula 3.00 05/27/17 23:00 97.2 83 18 93/53 95 113/43 05/27/17 23:00 95 Nasal Cannula 3.00 05/27/17 23:00 70 05/27/17 19:00 68 05/27/17 19:00 97.2 68 12 92/51 97 105/42 05/27/17 19:00 97 Nasal Cannula 4.00 05/27/17 17:25 97 Nasal Cannula 4.00 05/27/17 17:25 97 Nasal Cannula 4 05/27/17 17:20 96 Nasal Cannula 4.00 05/27/17 16:39 97.4 05/27/17 16:10 96 40 05/27/17 15:30 97.7 71 10 83/46 92 97/35 05/27/17 15:30 74 05/27/17 15:30 96 Mechanical Ventilator 60 05/27/17 15:30 40 05/27/17 15:27 96 40 05/27/17 14:29 97.4 05/27/17 13:30 97 50 7/5/17 13:20 97.4 05/27/17 12:33 96.3 05/27/17 12:30 50 05/27/17 11:45 60 05/27/17 11:45 99 60 05/27/17 11:23 97 60 05/27/17 11:22 51 05/27/17 11:21 97.6 05/27/17 11:15 97.6 52 10 92/44 96 94/39 05/27/17 11:15 60 05/27/17 11:15 96 Mechanical Ventilator 60 Labs: GENERAL: SKIN: Warm and dry. prevena to chest , zhou wrap to left leg HEAD: Normocephalic. EYES: No scleral icterus. No injection or drainage. NECK: Supple, trachea midline. No JVD or lymphadenopathy. CARDIOVASCULAR: Regular rate and rhythm without murmurs, gallops, or rubs. general edema RESPIRATORY: Breath sounds equal bilaterally. diminished in bases No accessory muscle use. chest tube to wall suction, no air leak / drained 240cc/ 12 hrs GASTROINTESTINAL: Abdomen soft, non-tender, nondistended. MUSCULOSKELETAL: No cyanosis, or edema. BACK: Nontender without obvious deformity. No CVA tenderness. Laboratory Tests Test 05/28/17 04:00 White Blood Count 13.1 TH/MM3 (4.0-11.0) Red Blood Count 3.51 MIL/MM3 (4.00-5.30) Hemoglobin 9.3 GM/DL (11.6-15.3) Hematocrit 28.6 % (35.0-46.0) Mean Corpuscular Volume 81.4 FL (80.0-100.0) Mean Corpuscular Hemoglobin 26.5 PG (27.0-34.0) Mean Corpuscular Hemoglobin 32.6 % Concent (32.0-36.0) Red Cell Distribution Width 18.3 % (11.6-17.2) Platelet Count 126 TH/MM3 (150-450) Mean Platelet Volume 8.3 FL (7.0-11.0) Sodium Level 143 MEQ/L (136-145) Potassium Level 4.2 MEQ/L (3.5-5.1) Chloride Level 111 MEQ/L (98-107) Carbon Dioxide Level 25.8 MEQ/L (21.0-32.0) Anion Gap 6 MEQ/L (5-15) Blood Urea Nitrogen 23 MG/DL (7-18) Creatinine 0.96 MG/DL (0.50-1.00) Estimat Glomerular Filtration 57 ML/MIN (>89) Rate Random Glucose 103 MG/DL (74-106) Calcium Level 8.2 MG/DL (8.5-10.1) Magnesium Level 1.9 MG/DL (1.5-2.5) Result Diagram: 05/28/1739905/28/17399 Telemetry: NSR (1) Aortic stenosis (2) CAD (coronary artery disease) (3) Diastolic CHF due to valvular disease Plan: consider diuresis in am (4) Hyperlipemia Plan: on statin (5) Chronic kidney disease Plan: creatinine stable 0.96 (6) Hypertension Plan: Bp labile this am (7) S/P CABG x 1 Plan: start BB this pm if BP tolerates, on ASA, statin pulm toileting OOB, ambulate (8) S/P AVR (aortic valve replacement) Plan: on ASA Holly Ball May 28, 2017 10:52
[2017-05-28] MEDS: INSULIN ASPART SUPPLEMENTAL SCALE SQ SCH ×4 (10:59→22:15)
[2017-05-28] MEDS: KETOROLAC TROMETHAMINE 30 MG/ML (IVP) VIAL IV PUSH PRN (11:27)
--- NOTE | 2017-05-28 19:02 | EKG ---
Date Performed: 05/28/2017 Time Performed: 05:31:48 PTAGE: 76 years EKG: Sinus tachycardia. Poor R wave progression - probable normal variant Lateral ST-T changes m ay be due to myocardial ischemia Compared to previous tracing, the sinus tachycardia is new. There's been some variation in the nonspecific ST-T wave changes, but no other serial change Abnormal ECG PREVIOUS TRACING : 05/15/2017 09.21 DOCTOR: Jaqui Alvarado Interpretating Date/Time 05/28/2017 19:00:47
[2017-05-28] MEDS: METOPROLOL TARTRATE 25 MG TAB PO SCH (20:58)
[2017-05-28] MEDS: SENNOSIDES 8.6 MG TAB PO SCH (20:58)
[2017-05-28] MEDS: DOCUSATE SODIUM 100 MG CAP PO SCH (20:58)
[2017-05-29] VITALS (31 sets, daily range): BP systolic 95–127; BP diastolic 53–78; PULSE 70–143; RESP 16–20; TEMP 97.7–100.4; O2SAT 92–96
[2017-05-29] MEDS ORDERED: AMIODARONE 150 MG/D5W 97 ML BOLUS 10 MINUTES IV ONE ×2 (02:00)
[2017-05-29] MEDS: INSULIN ASPART SUPPLEMENTAL SCALE SQ SCH ×5 (02:34→21:41)
[2017-05-29 05:05] LABS: AUTOMATED NEUTROPHIL # 10.2 TH/MM3 (1.8-7.7); BASOPHIL % 0.2 % (0.0-2.0); EOSINOPHIL % 0.1 % (0.0-4.0); HEMATOCRIT 26.4 % (35.0-46.0); HEMO FLAGS DIFF FINAL; LYMPH % 8.4 % (9.0-44.0); MEAN CELL VOLUME 82.6 FL (80.0-100.0); MEAN CORPUSCULAR HEMOGLOBIN 26.2 PG (27.0-34.0); MEAN CORPUSCULAR HGB CONC 31.8 % (32.0-36.0); MONO % 7.3 % (0.0-8.0); PLATELET COUNT 117 TH/MM3 (150-450); WHITE BLOOD COUNT 12.1 TH/MM3 (4.0-11.0)
[2017-05-29 05:35] LABS: BICARBONATE 25.5 MEQ/L (21.0-32.0); MAGNESIUM 2.1 MG/DL (1.5-2.5); POTASSIUM 4.2 MEQ/L (3.5-5.1)
[2017-05-29] MEDS: LEVOTHYROXINE SODIUM 25 MCG TAB PO SCH (06:06)
[2017-05-29] MEDS: PANTOPRAZOLE SOD 40 MG DELAYED RELEASE TAB PO SCH (06:06)
[2017-05-29] MEDS: RESP: ALBUTEROL 2.5 MG/IPRATROPIUM 0.5 MG NEB (SCH) NEB ×2 (07:50→08:00)
[2017-05-29] MEDS: ASPIRIN EC 81 MG TABEC PO SCH (09:21)
[2017-05-29] MEDS: PRAVASTATIN SOD 80 MG TAB PO SCH (09:22)
[2017-05-29] MEDS: METOPROLOL TARTRATE 25 MG TAB PO SCH ×2 (09:22→21:44)
[2017-05-29] MEDS: DOCUSATE SODIUM 100 MG CAP PO SCH ×2 (09:22→21:45)
[2017-05-29] MEDS: MULTIVITAMINS/MINERALS THERAPEUTIC TAB PO SCH (09:22)
[2017-05-29] MEDS: ASCORBIC ACID 500 MG TAB PO SCH ×2 (09:22→21:46)
[2017-05-29] MEDS: MAGNESIUM HYDROXIDE SUSP 30 ML CUP PO SCH (09:23)
[2017-05-29] MEDS: CHOLECALCIFEROL (VIT D3) 1000 UNIT TAB PO SCH ×2 (09:23→21:44)
[2017-05-29] MEDS: FERROUS SULFATE 325 MG (65 MG ELEMENTAL IRON) TAB PO SCH (09:23)
[2017-05-29] MEDS: POLYETHYLENE GLYCOL 17 GM PKG PO SCH (09:23)
[2017-05-29] MEDS ORDERED: RESP: IPRATROPIUM 0.5 MG/2.5 ML NEB NEB PRN (10:15)
[2017-05-29] MEDS ORDERED: AMIODARONE INJ 900 MG in D5W 500 ML (EXCEL BAG) 482 ML IV SCH (10:15)
[2017-05-29] MEDS ORDERED: AMIODARONE INJ 150 MG in DEXTROSE 5% IN WATER 100ML INJ 97 ML IV ONE ×2 (11:30)
[2017-05-29] MEDS ORDERED: MAGNESIUM SULFATE 1 GM PREMIX 100 ML IV ONE (11:30)
[2017-05-29] MEDS: traMADol HCL 50 MG TAB PO PRN ×2 (12:15→21:43)
[2017-05-29] MEDS: KETOROLAC TROMETHAMINE 30 MG/ML (IVP) VIAL IV PUSH PRN (12:16)
[2017-05-29] MEDS ORDERED: POTASSIUM CHLORIDE 20 MEQ CONTROLLED RELEASE TAB PO ONE (13:30)
[2017-05-29] MEDS ORDERED: FUROSEMIDE 20 MG/2 ML VIAL IV PUSH ONE (13:30)
[2017-05-29] MEDS: AMIODARONE INJ 450 MG in D5W (EXCEL BAG) 241 ML IV SCH (13:31)
--- NOTE | 2017-05-29 13:50 | EKG ---
Date Performed: 05/29/2017 Time Performed: 01:26:04 PTAGE: 76 years EKG: Atrial fibrillation with rapid ventricular response Leftward axis Left bundle branch block Possible inferior infarct - age undetermined Abnormal ECG PREVIOUS TRACING 05/28/2017 Compared to prior study of 05/28/2017, atrial fibrillation with ra pid ventricular response has replaced Sinus rhythm . Left bundle branch block is now present. DOCTOR: Jose Elias Hameed Interpretating Date/Time 05/29/2017 13:49:21
--- NOTE | 2017-05-29 14:00 | PD.CAR.PN ---
CVT Progress Note CVT: POD #: 2 Subjective/Hospital Course: 76/ female hx of aortic valve stenosis ( LUCY 0.5, underwent cardiac cath 05/[address] Parekh , found to have 90% lesion in prox LAD PMH: aortic stenosis , AAA 2.9x3.3 02/06, arthritis, CKD stage 3, HLP, HTN surgery: AVR with a 21 Intuity tissue valve, CABG x 1, VILLA to LAD - good, GERARDO 05/27 crystalloid 1800cc, 500cc cell saver, 1000 EBL, 750cc urine required IV bolus and dopamine post surgery 05/28 Dopamine weaned off, after receiving additional fluid bolus up in chair, painful from chest tubes dose of toradol given continue pulm toileting keep chest tubes in , plan to transfer to stepdown 05/29 pt went into afib rvr last pm, recieved bolus IV amiodarone converted then went back into afib rvr this am additinal IV bolus of amiodarone and gtt started additional magnesium given low grade temp last pm, pt not utilizing pain meds, tramadol added , encouraged to cough , IS acapella CT 130cc/ 12 hrs / reeval for removal later today Objective: GENERAL: SKIN: Warm and dry.prevena dressing to chest , HEAD: Normocephalic. EYES: No scleral icterus. No injection or drainage. NECK: Supple, trachea midline. No JVD or lymphadenopathy. CARDIOVASCULAR: Afib irregular rate and rhythm without murmurs, gallops, or rubs. RESPIRATORY: Breath sounds equal bilaterally. No accessory muscle use. diminished in bases / chest tube no air leak / drained 130cc in 12 hrs GASTROINTESTINAL: Abdomen soft, non-tender, nondistended. MUSCULOSKELETAL: No cyanosis, or edema. BACK: Nontender without obvious deformity. No CVA tenderness. Vital Signs Date Time Temp Pulse Resp B/P Pulse Ox O2 Delivery O2 Flow Rate FiO2 05/29/17 11:00 126 05/29/17 10:00 130 05/29/17 09:00 126 05/29/17 08:38 99.6 05/29/17 08:00 132 05/29/17 07:50 93 Nasal Cannula 2.00 05/29/17 07:00 100.4 113 19 125/71 93 05/29/17 07:00 Nasal Cannula 3.00 05/29/17 07:00 90 05/29/17 06:00 89 05/29/17 05:33 98.6 05/29/17 05:00 88 05/29/17 04:00 87 05/29/17 03:30 89 105/58 05/29/17 03:00 94 05/29/17 03:00 96 Nasal Cannula 3.00 05/29/17 03:00 99.7 98 16 96/63 96 05/29/17 02:00 108 05/29/17 01:15 143 127/78 05/29/17 01:00 96 05/29/17 00:00 98 05/28/17 23:00 94 Nasal Cannula 2.00 05/28/17 23:00 98.3 102 16 113/58 94 05/28/17 23:00 104 05/28/17 22:00 108 05/28/17 21:00 108 05/28/17 20:36 94 Nasal Cannula 2.00 05/28/17 20:00 98.0 104 16 118/63 95 05/28/17 20:00 95 Nasal Cannula 2.00 05/28/17 20:00 106 05/28/17 19:00 90 05/28/17 18:03 82 05/28/17 17:21 92 05/28/17 16:27 90 05/28/17 15:32 98.2 99 18 121/68 96 05/28/17 15:32 96 05/28/17 15:32 96 Nasal Cannula 2.00 05/28/17 14:27 100 Nasal Cannula 2.00 05/28/17 14:02 82 Labs: Laboratory Tests Test 05/29/17 04:35 White Blood Count 12.1 TH/MM3 (4.0-11.0) Red Blood Count 3.20 MIL/MM3 (4.00-5.30) Hemoglobin 8.4 GM/DL (11.6-15.3) Hematocrit 26.4 % (35.0-46.0) Mean Corpuscular Volume 82.6 FL (80.0-100.0) Mean Corpuscular Hemoglobin 26.2 PG (27.0-34.0) Mean Corpuscular Hemoglobin 31.8 % Concent (32.0-36.0) Red Cell Distribution Width 19.0 % (11.6-17.2) Platelet Count 117 TH/MM3 (150-450) Mean Platelet Volume 8.2 FL (7.0-11.0) Neutrophils (%) (Auto) 84.0 % (16.0-70.0) Lymphocytes (%) (Auto) 8.4 % (9.0-44.0) Monocytes (%) (Auto) 7.3 % (0.0-8.0) Eosinophils (%) (Auto) 0.1 % (0.0-4.0) Basophils (%) (Auto) 0.2 % (0.0-2.0) Neutrophils # (Auto) 10.2 TH/MM3 (1.8-7.7) Lymphocytes # (Auto) 1.0 TH/MM3 (1.0-4.8) Monocytes # (Auto) 0.9 TH/MM3 (0-0.9) Eosinophils # (Auto) 0.0 TH/MM3 (0-0.4) Basophils # (Auto) 0.0 TH/MM3 (0-0.2) CBC Comment DIFF FINAL Differential Comment Sodium Level 139 MEQ/L (136-145) Potassium Level 4.2 MEQ/L (3.5-5.1) Chloride Level 105 MEQ/L (98-107) Carbon Dioxide Level 25.5 MEQ/L (21.0-32.0) Anion Gap 9 MEQ/L (5-15) Blood Urea Nitrogen 27 MG/DL (7-18) Creatinine 1.17 MG/DL (0.50-1.00) Estimat Glomerular Filtration 45 ML/MIN (>89) Rate Random Glucose 100 MG/DL (74-106) Calcium Level 8.2 MG/DL (8.5-10.1) Phosphorus Level 3.1 MG/DL (2.5-4.9) Magnesium Level 2.1 MG/DL (1.5-2.5) Result Diagram: 05/29/1743405/29/17434 Telemetry: afib RVR (1) Aortic stenosis (2) CAD (coronary artery disease) (3) Diastolic CHF due to valvular disease Plan: gentle diuresis (4) Hyperlipemia Plan: on statin (5) Chronic kidney disease Plan: creatinine stable 0.96 >1.17 dc toradol , monitor indices (6) Hypertension Plan: Bp labile this am (7) S/P CABG x 1 Plan: on BB, on ASA, statin pulm toileting OOB, ambulate (8) S/P AVR (aortic valve replacement) Plan: on ASA (9) Afib Plan: on IV amiodarone , new LBBB cardiology consulted madiha ok, additional mag given check TSH Holly Ball May 29, 2017 14:00
--- NOTE | 2017-05-29 14:20 | HHI.FF ---
Face to Face Verification Diagnosis: (1) Hyperlipemia (2) Hypertension (3) Chronic kidney disease (4) Diastolic CHF due to valvular disease (5) CAD (coronary artery disease) (6) Afib (7) S/P AVR (aortic valve replacement) (8) S/P CABG x 1 Physical Therapy Order: Evaluate and Treat Home Health Nursing Order: Signs/symptoms of disease process Medication education-adverse effect Wound care and dressing changes Nursing assessment with vital signs Instructions: Heart and Vascular Surgery patients *Special attention to sternal dressing Mandatory frequency Assess and evaluation, 4 days in a row The next week 3X week 2 times a week for 4 weeks 1 time a week for 5 weeks Schedule Heart and Vascular patients for full 60 day certification period Initial visit Review Open Heart Surgery Discharge Instructions (Sternal precautions, Activity, Elastic hose, Incision care, Driving, Incentive spirometry, Smoking, [place], Work and other) Need Betadine to paint incision Medication reconciliation Importance of follow up care/ check on appointments Make calendar record temperature daily When to call [facility] nurse, review instructions, phone list Incentive Spirometry, demonstration Visit 1- Begin discharge instruction for patient family and/ or caregiver using teach back method- Signs and symptoms of infection Disease characteristics Medicines and side effects Foods and nutrition/ appetite Infection control/ hand washing/ hygiene Visit 2- Continue teaching Discharge instructions- include additional information on smoking cessation , sternal dressing (sternal vac) Visit 3- Continue teaching- Cough and deep breathing, incision monitoring. Choose my plate Visit 4- Continue teaching- Discuss limitations Discuss how they are feeling Discuss progress toward goals Remaining visits- continue teaching and monitoring PREVENA Single Use Negative Wound Therapy System Caregiver Instruction Sheet 1. A Prevena dressing system was applied to the chest incision during surgery , to promote wound healing. It works via a suction device (negative pressure wound therapy) to remove low to moderate levels of exudate (drainage) and infectious materials. We recommend that the device stay in place for up to seven days, from day of surgery. 2. Day of Surgery___/04/08 Day of Removal ____/11/08 3. The dressing should only be removed by a health residential care facility manager. Please arrange removal of device to coincide with Home Health visit and or with Nursing staff at Rehab 4. If skin reddening or irritation of skin occurs, or excessive drainage, please notify the Cardiovascular Surgeons office at [phone]. 5. Light showering is permissible; however the pump should be disconnected and placed in safe location, where it will not get wet. The dressing should not be exposed to direct spray or submerged in water. No bath tub / shower only. Ensure the end of the tubing attached to the dressing is facing down so that water does not enter the top of the tube. 6. To remove Prevena dressing: press purple button to turn off device / remove the suction. Then disconnect the tubing from the pump. The fixation strips should be stretched away from the skin and the dressing lifted at one corner and peeled back until it has been fully removed. 7. After removal, it is ok to shower daily using liquid dial soap and clean wash cloth, rinse and pat dry, and leave incision open to air dry. For any concerns regarding Prevena dressing, and or wounds, please contact Leia Kiser, patient navigator at [phone] or notify the Cardiovascular Surgeons office at [phone]. Incentive spirometry Q1 hr x 10, while awake, also use acapella device hourly whole awake Sternal Breast Bone Precautions: NO pushing or pulling, ( pt must use sternal pillow to support chest with all activities and with coughing ( takes up to 3 months breast bone to heal ) All females to wear sternal bra , launder as needed Daily incision care: ok to shower daily, no tub bath. Wash all incisions with liquid dial soap, clean wash cloth to each site, rinse and pat dry. Observe for any signs of infection, such as drainage which is dark yellow, yousif, green or foul smelling. Immediately report to the surgeon any drainage from the chest incision, or legs, and for any abnormal drainage from the chest tube sites. Notify surgeon if any temp >101.5 degrees F. When specialty dressing removed/ or if you do not have one, continue to shower daily as above, then rinse and pat incision dry and paint with betadine daily x 5 days. Allow steri strips to fall off if you have any. Avoid lotions, creams, salves, oils, etc. for the first month Please see attached forms for additional instructions regarding post Open Heart specialty wound vacuum dressings. SELVIN or Prevena , Dressing to be removed by Nursing staff on _06/03/[address] Kuhn patients , please obtain CBC, BMP, PA & Lat CXR in 2 weeks, results to Dr. Kuhn ( prescription will be given) ( ) (Tele: [phone]) , Valve replacement pts will need 2decho in 2 weeks with results to Dr. Kuhn . Please obtain 2 d echo at your motor equipment captain office if possible F/U appointment: as per DC instructions: PCP in 2 weeks, CV surgeon 2 weeks, Refractory Specialist 3-4 weeks For any questions regarding incisions/ dressing / meds / post op care or above Symptoms, Thursday 8am-5pm Heart & Vascular Surgery Office ( Dr. Lazar & Dr. Kuhn), After Hours / Nights (5pm -8am) Weekends and Holidays Please call [facility] Card[facility] ([facility]) Charge Nurse I have seen patient Ruth Cui on 05/29/17. My clinical findings support the need for the requested home health care services because: Deconditioned w/ increased weakness I certify that my clinical findings support that this patient is homebound because: Post-op weakness Holly Ball May 29, 2017 14:20
--- NOTE | 2017-05-29 17:03 | RADRPT ---
EXAM DATE/TIME: 05/29/2017 16:32 [place] COMPARISON: CHEST SINGLE AP, May 28, 2017, 3:38. INDICATIONS : Post chest tube removal. MEDICAL HISTORY : Congestive heart failure. Hypertension Renal failure, chronic. CAD Aortic stenosis SURGICAL HISTORY : CABG. ENCOUNTER: Subsequent ACUITY: 4 - 6 days PAIN SCORE: 0/10 LOCATION: Bilateral chest FINDINGS: The left-sided chest tube has been removed. There is no pneumothorax. There is some scattered areas o f atelectasis in the lung bases. Otherwise no significant change compared to the prior exam. The hear t size is stable. There are no pleural effusions. CONCLUSION: No evidence of pneumothorax. Rich Blair MD on May 29, 2017 at 17:01 Board Certified Radiologist. This report was verified electronically.
[2017-05-29] MEDS: ONDANSETRON HCL 4 MG/2 ML VIAL IV PUSH PRN (17:10)
[2017-05-29] MEDS ORDERED: METOPROLOL TARTRATE 25 MG TAB PO SCH (21:00)
[2017-05-29] MEDS: SENNOSIDES 8.6 MG TAB PO SCH (21:44)
--- NOTE | 2017-05-29 22:21 | MB ---
cc: STEFAN CAZARES DO DATE OF CONSULTATION May 29, 2017 REASON FOR CONSULTATION New left bundle branch block, atrial fibrillation. HISTORY OF PRESENT ILLNESS Ruth Cui is a pleasant 76-year-old female who presented to [facility] on May 27, 2017 for elective AVR and CABG. She underwent this procedure by Dr. Kuhn and had a VILLA to LAD as well as an AVR with a 21 Intuity tissue valve placed. It appears that after the procedure she was still noted to have a normal QRS pattern on EKG but about 24 hours postprocedure she was noted to have a left bundle branch block and in atrial fibrillation. Postprocedure, the patient was mildly bradycardic and hypotensive and so she was not started on Amiodarone IV per the usual protocol. In seeing her she is currently cardiovascularly stable. She has been started on an Amiodarone drip and heart rates have been relatively controlled, although, she does have episodes of atrial fibrillation with rapid ventricular response. PAST MEDICAL HISTORY 1. Abdominal aortic aneurysm. 2. Hypertension. 3. Diabetes mellitus. 4. Coronary artery disease. 5. Hyperlipidemia. 6. Arthritis. 7. Severe aortic stenosis. PAST SURGICAL HISTORY Cardiac catheterization (May 15, 2017) left main is calcified but patent. LAD has a significant 90% lesion in the proximal segment. Left circumflex has mild luminal irregularities. RCA has minimal luminal irregularities. ALLERGIES NO KNOWN DRUG ALLERGIES. MEDICATIONS 1. Lisinopril/hydrochlorothiazide 20/25 half a tablet daily. 2. Toprol XL 25 milligrams daily. 3. Norvasc 5 milligrams daily. 4. Pravastatin 80 milligrams daily. 5. Iron 45 milligrams daily. 6. Multivitamin daily. 7. Aspirin 81 milligrams daily. 8. Synthroid 25 micrograms daily. FAMILY HISTORY Denies premature coronary artery disease or sudden cardiac within the family. SOCIAL HISTORY Previously smoked but quit a number years ago. Denies alcohol or drug abuse. REVIEW OF SYSTEMS 14-systems were reviewed including osteopathic, pertinent positives and negatives above otherwise negative. PHYSICAL EXAMINATION VITAL SIGNS: Temperature 98.1, heart rate 83, blood pressure 100/63, respirations 20, pulse ox 93% on 2 liters. GENERAL: In general the patient appears well in no acute distress, alert, awake and oriented x3. HEENT: Extraocular muscles intact. Mucous membranes moist. NECK: Supple. No JVD at 45 degrees. No carotid bruits heard bilaterally. Carotid upstroke is brisk in nature. HEART: Heart is regular rate and rhythm. Positive first and second heart sounds with a 1/6 crescendo-decrescendo murmur to the right sternal border. LUNGS: Clear to auscultation bilaterally. No wheezes, rales or rhonchi. Previous sternotomy is covered with a wound VAC. ABDOMEN: Soft, nontender, nondistended. No organomegaly noted. EXTREMITIES: Show no clubbing, cyanosis or edema. Femoral and distal pulses intact bilaterally. NEUROLOGICALLY: No focal deficits. SKIN: Warm, dry and intact. OSTEOPATHIC: Mild kyphoscoliosis. No lordosis or paraspinal tender points. LABORATORY FINDINGS Hemoglobin 8.4, hematocrit 26.4, platelets 117. Potassium 4.2, BUN 27, creatinine 1.17, TSH 3.41. CARDIOLOGY STUDIES Electrocardiogram (April 29, 2017 at 11:25) atrial fibrillation with rapid ventricular response, left axis deviation, left bundle branch block. IMPRESSION 1. Aortic valve stenosis status post AVR with a 21 mm Intuity tissue valve (May 27, 2017). 2. Coronary artery disease as above, status post CABG with VILLA to LAD (May 27, 2017). 3. New onset atrial fibrillation postoperatively. 4. New onset left bundle branch block. 5. Hyperlipidemia. 6. Chronic kidney disease. RECOMMENDATIONS 1. Ms. Cui appears to have new onset atrial fibrillation postoperative from her open heart surgery. She is currently on an Amiodarone drip and most likely this will have to be transformed to oral Amiodarone on discharge. 2. She may need further beta blockade as possible. 3. As far as anticoagulation goes she would be a CHADS VASc score of 4 and should at least be considered for anticoagulation. A concern is that her hemoglobin is currently 8.4. She has just recently had her chest tubes removed. We will follow her hemoglobin and stabilized then will consider based on the hospital course. 4. Further recommendations will be made based on the hospital course. Thank you for allowing me to see Ruth Cui. If there are any questions please do not hesitate to call. Stefan Cazares DO VGP/EO /9:53 PM /10:11 PM
[2017-05-30] VITALS (31 sets, daily range): BP systolic 94–118; BP diastolic 54–63; PULSE 68–120; RESP 18–20; TEMP 97.7–98.6; O2SAT 90–95
[2017-05-30] MEDS: AMIODARONE INJ 450 MG in D5W (EXCEL BAG) 241 ML IV SCH (00:55)
[2017-05-30] MEDS: LEVOTHYROXINE SODIUM 25 MCG TAB PO SCH (05:30)
[2017-05-30] MEDS: PANTOPRAZOLE SOD 40 MG DELAYED RELEASE TAB PO SCH (05:30)
[2017-05-30 06:56] LABS: AUTOMATED NEUTROPHIL # 5.8 TH/MM3 (1.8-7.7); BASOPHIL % 0.4 % (0.0-2.0); EOSINOPHIL # 0.1 TH/MM3 (0-0.4); EOSINOPHIL % 1.1 % (0.0-4.0); HEMATOCRIT 24.2 % (35.0-46.0); LYMPH % 17.7 % (9.0-44.0); LYMPHOCYTE # 1.4 TH/MM3 (1.0-4.8); MEAN CELL VOLUME 82.5 FL (80.0-100.0); MEAN CORPUSCULAR HEMOGLOBIN 27.1 PG (27.0-34.0); MEAN CORPUSCULAR HGB CONC 32.9 % (32.0-36.0); MONO % 9.5 % (0.0-8.0); NEUT % 71.3 % (16.0-70.0); PLATELET COUNT 97 TH/MM3 (150-450); RED BLOOD COUNT 2.93 MIL/MM3 (4.00-5.30); RED CELL DISTRIBUTION WIDTH 18.4 % (11.6-17.2); WHITE BLOOD COUNT 8.2 TH/MM3 (4.0-11.0)
[2017-05-30] MEDS: INSULIN ASPART SUPPLEMENTAL SCALE SQ SCH (07:00)
[2017-05-30 07:13] LABS: HEMO FLAGS AUTO DIFF
[2017-05-30 07:17] LABS: BICARBONATE 31.8 MEQ/L (21.0-32.0)
[2017-05-30 08:24] LABS: OVALOCYTES 1+ (NORMAL); PLATELET ESTIMATE SMEAR LOW (NORMAL); PLATELET MORPHOLOGY NORMAL (NORMAL); SCAN/DIFF AUTO DIFF CONFIRMED
--- NOTE | 2017-05-30 08:46 | PD.CAR.PN ---
CVT Progress Note Subjective/Hospital Course: 76/ female hx of aortic valve stenosis ( LUCY 0.5, underwent cardiac cath 05/[address] Parekh , found to have 90% lesion in prox LAD PMH: aortic stenosis , AAA 2.9x3.3 02/06, arthritis, CKD stage 3, HLP, HTN surgery: AVR with a 21 Intuity tissue valve, CABG x 1, VILLA to LAD - good, GERARDO 05/27 crystalloid 1800cc, 500cc cell saver, 1000 EBL, 750cc urine required IV bolus and dopamine post surgery 05/28 Dopamine weaned off, after receiving additional fluid bolus up in chair, painful from chest tubes dose of toradol given continue pulm toileting keep chest tubes in , plan to transfer to stepdown 05/29 pt went into afib rvr last pm, recieved bolus IV amiodarone converted then went back into afib rvr this am additinal IV bolus of amiodarone and gtt started additional magnesium given low grade temp last pm, pt not utilizing pain meds, tramadol added , encouraged to cough , IS acapella CT 130cc/ 12 hrs / reeval for removal later today 05/30 Doing well Converted to NSR. Will change Amiodarone to PO from IV Discharge planning Objective: Vital Signs Date Time Temp Pulse Resp B/P Pulse Ox O2 Delivery O2 Flow Rate FiO2 05/30/17 07:00 68 05/30/17 06:00 110 05/30/17 05:05 98.6 105 18 94/63 94 05/30/17 05:00 112 05/30/17 04:00 110 05/30/17 03:27 96 Nasal Cannula 2.00 05/30/17 03:00 120 05/30/17 02:00 104 05/30/17 01:00 108 05/30/17 00:03 98.5 106 18 96/60 95 05/30/17 00:03 95 Nasal Cannula 2.00 05/30/17 00:00 108 05/29/17 23:00 122 05/29/17 22:00 108 05/29/17 21:00 114 05/29/17 20:30 94 Nasal Cannula 2.00 05/29/17 20:30 98.1 113 18 118/70 94 05/29/17 20:19 93 Nasal Cannula 2.00 05/29/17 20:00 108 05/29/17 19:00 122 05/29/17 18:00 70 05/29/17 17:00 72 05/29/17 16:00 74 05/29/17 15:31 21 05/29/17 15:00 Nasal Cannula 2.00 05/29/17 15:00 97.7 83 20 95/53 92 05/29/17 15:00 80 05/29/17 14:00 88 05/29/17 13:00 118 05/29/17 12:00 122 05/29/17 11:00 98.1 125 20 100/63 93 05/29/17 11:00 126 05/29/17 11:00 Nasal Cannula 2.00 05/29/17 10:00 130 05/29/17 09:00 126 Labs: Laboratory Tests Test 05/30/17 05:45 White Blood Count 8.2 TH/MM3 (4.0-11.0) Red Blood Count 2.93 MIL/MM3 (4.00-5.30) Hemoglobin 7.9 GM/DL (11.6-15.3) Hematocrit 24.2 % (35.0-46.0) Mean Corpuscular Volume 82.5 FL (80.0-100.0) Mean Corpuscular Hemoglobin 27.1 PG (27.0-34.0) Mean Corpuscular Hemoglobin 32.9 % Concent (32.0-36.0) Red Cell Distribution Width 18.4 % (11.6-17.2) Platelet Count 97 TH/MM3 (150-450) Mean Platelet Volume 9.0 FL (7.0-11.0) Neutrophils (%) (Auto) 71.3 % (16.0-70.0) Lymphocytes (%) (Auto) 17.7 % (9.0-44.0) Monocytes (%) (Auto) 9.5 % (0.0-8.0) Eosinophils (%) (Auto) 1.1 % (0.0-4.0) Basophils (%) (Auto) 0.4 % (0.0-2.0) Neutrophils # (Auto) 5.8 TH/MM3 (1.8-7.7) Lymphocytes # (Auto) 1.4 TH/MM3 (1.0-4.8) Monocytes # (Auto) 0.8 TH/MM3 (0-0.9) Eosinophils # (Auto) 0.1 TH/MM3 (0-0.4) Basophils # (Auto) 0.0 TH/MM3 (0-0.2) CBC Comment AUTO DIFF Differential Comment AUTO DIFF CONFIRMED Platelet Estimate LOW (NORMAL) Platelet Morphology Comment NORMAL (NORMAL) Ovalocytes 1+ (NORMAL) Sodium Level 140 MEQ/L (136-145) Potassium Level 4.0 MEQ/L (3.5-5.1) Chloride Level 103 MEQ/L (98-107) Carbon Dioxide Level 31.8 MEQ/L (21.0-32.0) Anion Gap 5 MEQ/L (5-15) Blood Urea Nitrogen 18 MG/DL (7-18) Creatinine 0.83 MG/DL (0.50-1.00) Estimat Glomerular Filtration 67 ML/MIN (>89) Rate Random Glucose 91 MG/DL (74-106) Calcium Level 8.1 MG/DL (8.5-10.1) Magnesium Level 2.0 MG/DL (1.5-2.5) Result Diagram: 05/30/1754405/30/17544 (1) Aortic stenosis (2) CAD (coronary artery disease) (3) Diastolic CHF due to valvular disease Plan: gentle diuresis (4) Hyperlipemia Plan: on statin (5) Chronic kidney disease Plan: creatinine stable 0.96 >1.17 dc toradol , monitor indices (6) Hypertension Plan: Bp labile this am (7) S/P CABG x 1 Plan: on BB, on ASA, statin pulm toileting OOB, ambulate (8) S/P AVR (aortic valve replacement) Plan: on ASA (9) Afib Plan: on IV amiodarone , new LBBB cardiology consulted madiha ok, additional mag given check TSH Jim Lazar MD May 30, 2017 08:46
[2017-05-30] MEDS: ONDANSETRON HCL 4 MG/2 ML VIAL IV PUSH PRN (08:59)
[2017-05-30] MEDS: ASPIRIN EC 81 MG TABEC PO SCH (09:00)
[2017-05-30] MEDS: AMIODARONE 200 MG TAB PO SCH ×2 (09:01→21:29)
[2017-05-30] MEDS: POLYETHYLENE GLYCOL 17 GM PKG PO SCH (09:01)
[2017-05-30] MEDS: MAGNESIUM HYDROXIDE SUSP 30 ML CUP PO SCH (09:02)
[2017-05-30] MEDS: ASCORBIC ACID 500 MG TAB PO SCH ×2 (09:02→21:29)
[2017-05-30] MEDS: DOCUSATE SODIUM 100 MG CAP PO SCH ×2 (09:03→21:29)
[2017-05-30] MEDS: METOPROLOL TARTRATE 25 MG TAB PO SCH ×2 (09:03→21:29)
[2017-05-30] MEDS: FERROUS SULFATE 325 MG (65 MG ELEMENTAL IRON) TAB PO SCH (09:03)
[2017-05-30] MEDS: PRAVASTATIN SOD 80 MG TAB PO SCH (09:03)
[2017-05-30] MEDS: CHOLECALCIFEROL (VIT D3) 1000 UNIT TAB PO SCH ×2 (09:03→21:28)
[2017-05-30] MEDS: MULTIVITAMINS/MINERALS THERAPEUTIC TAB PO SCH (09:03)
--- NOTE | 2017-05-30 09:53 | PD.CARD.PN ---
Subjective Subjective Remarks Not feeling well, nauseous but no emesis Appropriate sternotomy chest pain Objective Medications Current Medications Medications (Trade) Dose Ordered Sig/Marleen Route Start Time Stop Time Status Last Admin (NS Flush) 2 ml UNSCH PRN IV FLUSH 05/27/17 10:45 05/29/17 09:27 (Protonix) 40 mg DAILY@06 PO 05/28/17 06:00 05/30/17 05:30 (Tylenol) 650 mg Q4H PRN PO 05/27/17 10:45 Ondansetron HCl 4 mg 4 mg Q6H PRN IV PUSH 05/27/17 10:45 05/30/17 08:59 Magnesium Sulfate 2 gm/Sodium Chloride 104 ml @ 100 mls/hr UNSCH PRN IV 05/27/17 10:45 (Magnesium Sulfate Inj/NS Inj) 104 ml @ 50 mls/hr UNSCH PRN IV 05/27/17 10:45 (Ecotrin Ec) 81 mg DAILY PO 05/28/17 09:00 05/29/17 09:21 (Synthroid) 25 mcg DAILY@0600 PO 05/28/17 06:00 05/30/17 05:30 (Pravachol) 80 mg DAILY PO 05/28/17 09:00 05/30/17 09:03 (Vitamin D3) 1,000 units BID PO 05/27/17 21:00 05/30/17 09:03 (Ferrous Sulfate) 325 mg DAILY PO 05/28/17 09:00 05/30/17 09:03 (Vitamin C) 1,000 mg BID PO 05/28/17 09:00 05/30/17 09:02 (Colace) 100 mg BID PO 05/28/17 21:00 05/30/17 09:03 (Theragran M Tab) 1 tab DAILY PO 05/29/17 09:00 05/30/17 09:03 (Milk Of Magnesia Liq) 30 ml DAILY PO 05/29/17 09:00 05/30/17 09:02 (Miralax) 17 gm DAILY PO 05/29/17 09:00 05/30/17 09:01 (Senokot) 8.6 mg HS PO 05/28/17 21:00 05/29/17 21:44 (Fleets Enema (Adult)) 133 ml UNSCH PRN RECTAL 05/28/17 09:15 (Pill Splitter) 1 ea UNSCH PRN OTHER 05/28/17 09:30 Tramadol HCl 50 mg 50 mg Q8H PRN PO 05/29/17 11:15 05/29/17 21:43 (Cordarone Inj/ D5W ([place]) Inj) 250 ml @ 0 mls/hr CONTINUOUS IV 05/29/17 11:30 05/30/17 00:55 (Lopressor) 12.5 mg BID PO 05/29/17 21:00 05/30/17 09:03 (Cordarone) 400 mg Q12HR PO 05/30/17 09:00 05/30/17 09:01 Vital Signs / I&O Vital Signs Date Time Temp Pulse Resp B/P Pulse Ox O2 Delivery O2 Flow Rate FiO2 05/30/17 09:00 100 05/30/17 08:00 95 Nasal Cannula 2.00 05/30/17 08:00 97.7 83 20 98/57 92 05/30/17 08:00 74 05/30/17 07:00 68 05/30/17 06:00 110 05/30/17 05:05 98.6 105 18 94/63 94 05/30/17 05:00 112 05/30/17 04:00 110 05/30/17 03:27 96 Nasal Cannula 2.00 05/30/17 03:00 120 05/30/17 02:00 104 05/30/17 01:00 108 05/30/17 00:03 98.5 106 18 96/60 95 05/30/17 00:03 95 Nasal Cannula 2.00 05/30/17 00:00 108 05/29/17 23:00 122 05/29/17 22:00 108 05/29/17 21:00 114 05/29/17 20:30 94 Nasal Cannula 2.00 05/29/17 20:30 98.1 113 18 118/70 94 05/29/17 20:19 93 Nasal Cannula 2.00 05/29/17 20:00 108 05/29/17 19:00 122 05/29/17 18:00 70 05/29/17 17:00 72 05/29/17 16:00 74 05/29/17 15:31 21 05/29/17 15:00 Nasal Cannula 2.00 05/29/17 15:00 97.7 83 20 95/53 92 05/29/17 15:00 80 05/29/17 14:00 88 05/29/17 13:00 118 05/29/17 12:00 122 05/29/17 11:00 98.1 125 20 100/63 93 05/29/17 11:00 126 05/29/17 11:00 Nasal Cannula 2.00 05/29/17 10:00 130 I/O 05/29/17 05/29/17 05/29/17 05/30/17 05/30/17 05/30/17 07:00 15:00 23:00 07:00 15:00 23:00 Intake Total 560 ml 1183 ml 450 ml Output Total 1630 ml 2550 ml 1000 ml Balance -1070 ml -1367 ml -550 ml Intake Oral 360 ml 960 ml 450 ml IV Total 200 ml 223 ml Output Urine Total 1500 ml 2550 ml 1000 ml Stool Total 0 ml Chest Tube Drainage Total 130 ml # Bowel Movements 0 0 Physical Exam GENERAL: AAOx3 SKIN: Warm and dry. HEAD: Atraumatic. Normocephalic. EYES: Pupils equal and round. No scleral icterus. No injection or drainage. ENT: No nasal bleeding or discharge. Mucous membranes pink and moist. NECK: Trachea midline. No JVD. CARDIOVASCULAR: Regular rate and rhythm. RESPIRATORY: No accessory muscle use. Clear to auscultation. Breath sounds equal bilaterally. Sternotomy with wound vac GASTROINTESTINAL: Abdomen soft, non-tender, nondistended. Hepatic and splenic margins not palpable. MUSCULOSKELETAL: Extremities without clubbing, cyanosis, or edema. No obvious deformities. NEUROLOGICAL: Awake and alert. No obvious cranial nerve deficits. Motor grossly within normal limits. Five out of 5 muscle strength in the arms and legs. Normal speech. PSYCHIATRIC: Appropriate mood and affect; insight and judgment normal. Laboratory Laboratory Tests Test 05/30/17 05:45 White Blood Count 8.2 TH/MM3 Red Blood Count 2.93 MIL/MM3 Hemoglobin 7.9 GM/DL Hematocrit 24.2 % Mean Corpuscular Volume 82.5 FL Mean Corpuscular Hemoglobin 27.1 PG Mean Corpuscular Hemoglobin 32.9 % Concent Red Cell Distribution Width 18.4 % Platelet Count 97 TH/MM3 Mean Platelet Volume 9.0 FL Neutrophils (%) (Auto) 71.3 % Lymphocytes (%) (Auto) 17.7 % Monocytes (%) (Auto) 9.5 % Eosinophils (%) (Auto) 1.1 % Basophils (%) (Auto) 0.4 % Neutrophils # (Auto) 5.8 TH/MM3 Lymphocytes # (Auto) 1.4 TH/MM3 Monocytes # (Auto) 0.8 TH/MM3 Eosinophils # (Auto) 0.1 TH/MM3 Basophils # (Auto) 0.0 TH/MM3 CBC Comment AUTO DIFF Differential Comment AUTO DIFF CONFIRMED Platelet Estimate LOW Platelet Morphology Comment NORMAL Ovalocytes 1+ Sodium Level 140 MEQ/L Potassium Level 4.0 MEQ/L Chloride Level 103 MEQ/L Carbon Dioxide Level 31.8 MEQ/L Anion Gap 5 MEQ/L Blood Urea Nitrogen 18 MG/DL Creatinine 0.83 MG/DL Estimat Glomerular Filtration 67 ML/MIN Rate Random Glucose 91 MG/DL Calcium Level 8.1 MG/DL Magnesium Level 2.0 MG/DL Assessment and Plan Problem List: (1) Aortic stenosis (2) CAD (coronary artery disease) (3) Diastolic CHF due to valvular disease (4) Hyperlipemia (5) Chronic kidney disease (6) Hypertension (7) S/P CABG x 1 (8) S/P AVR (aortic valve replacement) (9) Afib Assessment and Plan 1) s/p CABG (VILLA to LAD) and AVR with Intuity 21mm tissue valve POD #3 2) New onset afib post-procedure, CHADSVASc = 4 Will hold off on anti-coagulation at this time as her hemoglobin has been creeping lower, would like to see it stabilize before starting Converted to sinus rhythm, Amiodarone changed to PO 3) New LBBB after AVR, most likely secondary to AVR No AV blocks noted on telemetry 4) Con't ASA/Statin/BB Tanner Horton DO May 30, 2017 09:53
--- NOTE | 2017-05-30 17:01 | EKG ---
Date Performed: 05/29/2017 Time Performed: 11:25:36 PTAGE: 76 years EKG: Atrial fibrillation with rapid ventricular response Leftward axis Left bundle branch block Possible lateral infarct - age undetermined Possible inferior infarct - age undetermined Abnormal ECG Compared to the PREVIOUS TRACING from 05/29/17, no significant change DOCTOR: Tanner Horton Interpretating Date/Time 05/30/2017 16:59:44
[2017-05-30] MEDS: SENNOSIDES 8.6 MG TAB PO SCH (21:28)
[2017-05-31] VITALS (16 sets, daily range): BP systolic 100–112; BP diastolic 54–64; PULSE 70–84; RESP 16; TEMP 97.8–98.6; O2SAT 96
[2017-05-31] MEDS: LEVOTHYROXINE SODIUM 25 MCG TAB PO SCH (05:49)
[2017-05-31] MEDS: PANTOPRAZOLE SOD 40 MG DELAYED RELEASE TAB PO SCH (05:50)
[2017-05-31] MEDS ORDERED: DOCU1CAP39 PO (08:45)
[2017-05-31] MEDS ORDERED: ULTR50TA5 PO (08:45)
[2017-05-31] MEDS ORDERED: AMIO200T PO (08:45)
--- NOTE | 2017-05-31 08:46 | HHI.DS ---
Discharge Summary Admission Date May 27, 2017 at 05:21 Discharge Date: May 31, 2017 Admitting Diagnosis CBC/BMP: 05/30/17 0545 05/30/17 0545 Significant Findings Laboratory Tests Test 05/29/17 05/30/17 04:35 05:45 White Blood Count 12.1 TH/MM3 (4.0-11.0) Red Blood Count 3.20 MIL/MM3 2.93 MIL/MM3 (4.00-5.30) (4.00-5.30) Hemoglobin 8.4 GM/DL 7.9 GM/DL (11.6-15.3) (11.6-15.3) Hematocrit 26.4 % 24.2 % (35.0-46.0) (35.0-46.0) Mean Corpuscular Hemoglobin 26.2 PG (27.0-34.0) Mean Corpuscular Hemoglobin 31.8 % Concent (32.0-36.0) Red Cell Distribution Width 19.0 % 18.4 % (11.6-17.2) (11.6-17.2) Platelet Count 117 TH/MM3 97 TH/MM3 (150-450) (150-450) Neutrophils (%) (Auto) 84.0 % 71.3 % (16.0-70.0) (16.0-70.0) Lymphocytes (%) (Auto) 8.4 % (9.0-44.0) Neutrophils # (Auto) 10.2 TH/MM3 (1.8-7.7) Blood Urea Nitrogen 27 MG/DL (7-18) Creatinine 1.17 MG/DL (0.50-1.00) Estimat Glomerular Filtration 45 ML/MIN (>89) 67 ML/MIN (>89) Rate Calcium Level 8.2 MG/DL 8.1 MG/DL (8.5-10.1) (8.5-10.1) Monocytes (%) (Auto) 9.5 % (0.0-8.0) Platelet Estimate LOW (NORMAL) Ovalocytes 1+ (NORMAL) Hospital Course Subjective/Hospital Course: 76/ female hx of aortic valve stenosis ( LUCY 0.5, underwent cardiac cath 05/[address] Parekh , found to have 90% lesion in prox LAD PMH: aortic stenosis , AAA 2.9x3.3 02/06, arthritis, CKD stage 3, HLP, HTN surgery: AVR with a 21 Intuity tissue valve, CABG x 1, VILLA to LAD - good, GERARDO 05/27 crystalloid 1800cc, 500cc cell saver, 1000 EBL, 750cc urine required IV bolus and dopamine post surgery 05/28 Dopamine weaned off, after receiving additional fluid bolus up in chair, painful from chest tubes dose of toradol given continue pulm toileting keep chest tubes in , plan to transfer to stepdown 05/29 pt went into afib rvr last pm, recieved bolus IV amiodarone converted then went back into afib rvr this am additinal IV bolus of amiodarone and gtt started additional magnesium given low grade temp last pm, pt not utilizing pain meds, tramadol added , encouraged to cough , IS acapella CT 130cc/ 12 hrs / reeval for removal later today 05/30 Doing well Converted to NSR. Will change Amiodarone to PO from IV Discharge planning 05/31 Discharge home with [facility] Discharge Disposition: Disch w/ Home Health Serv Discharge Instructions DIET: Follow Instructions for: Heart Healthy Diet Activities you can perform: Full Weight Bearing, Shower Only-No Bath Activities to avoid: Lifting/Bending, Strenuous Activity, Driving Follow up Referrals: Appointment for Follow Up Cardiology PCP Follow-up New Medications: Amiodarone (Amiodarone) 200 Mg Tab 400 MG PO Q12HR z Days 28 TAB Docusate Sodium (Dok) 100 Mg Cap 100 MG PO BID Constipation #40 CAP Tramadol (Ultram) 50 Mg Tab 50 MG PO Q8H PRN PAIN SCALE 1 TO 5 #40 TAB Continued Medications: Amlodipine (Amlodipine) 5 Mg Tab 5 MG PO DAILY Blood Pressure Management #30 Ref 0 TAB Ascorbic Acid ER (Vitamin C Tr) 500 Mg Caper 1000 MG PO BID Nutritional Supplement #[address] (Aspirin 81) 81 Mg Tabdr 81 MG PO DAILY Ref 0 TAB Cholecalciferol (D3) 1,000 Unit Cap 1000 UNIT PO BID Ferrous Sulfate (Iron) 90 Mg Tab 45 MG PO DAILY Garlic (Garlic Oil) 500 Mg Cap 1000 MG PO BID Krill Oil (Hm Megakrill 300 mg) 1 Cap Cap 1 CAP PO DAILY Levothyroxine (Levothyroxine) 25 Mcg Tab 25 MCG PO DAILY Thyroid #30 Ref 0 TAB Metoprolol Succinate ER 24 HR (Metoprolol Succinate ER 24 HR) 50 Mg Tab 0.5 TAB PO DAILY #30 Ref 0 TAB Multiple Vitamin (Multi Vitamin Daily) 1 Tab Tab 1 MG PO DAILY Pravastatin (Pravastatin) 80 Mg Tab 80 MG PO DAILY Cholesterol Management #30 Ref 0 TAB Discontinued Medications: Lisinopril-Hctz (Lisinopril-Hctz) 20-25 Mg Tab 0.05 TAB PO DAILY Blood Pressure Management #30 Ref 0 TAB Jim Lazar MD May 31, 2017 08:46
[2017-05-31] MEDS: MAGNESIUM HYDROXIDE SUSP 30 ML CUP PO SCH (09:00)
[2017-05-31] MEDS: POLYETHYLENE GLYCOL 17 GM PKG PO SCH (09:00)
[2017-05-31] MEDS: ASPIRIN EC 81 MG TABEC PO SCH (09:00)
[2017-05-31] MEDS: DOCUSATE SODIUM 100 MG CAP PO SCH (09:00)
[2017-05-31] MEDS: ASCORBIC ACID 500 MG TAB PO SCH (09:33)
[2017-05-31] MEDS: AMIODARONE 200 MG TAB PO SCH (09:34)
[2017-05-31] MEDS: FERROUS SULFATE 325 MG (65 MG ELEMENTAL IRON) TAB PO SCH (09:34)
[2017-05-31] MEDS: PRAVASTATIN SOD 80 MG TAB PO SCH (09:34)
[2017-05-31] MEDS: CHOLECALCIFEROL (VIT D3) 1000 UNIT TAB PO SCH (09:34)
[2017-05-31] MEDS: MULTIVITAMINS/MINERALS THERAPEUTIC TAB PO SCH (09:34)
[2017-05-31] MEDS: METOPROLOL TARTRATE 25 MG TAB PO SCH (09:36)
--- NOTE | 2017-05-31 11:17 | PD.CARD.PN ---
Subjective Subjective Remarks No chest pain, no shortness of breath, feeling better Telemetry showing mostly normal sinus rhythm Objective Medications Current Medications Medications (Trade) Dose Ordered Sig/Marleen Route Start Time Stop Time Status Last Admin (NS Flush) 2 ml UNSCH PRN IV FLUSH 05/27/17 10:45 05/29/17 09:27 (Protonix) 40 mg DAILY@06 PO 05/28/17 06:00 05/31/17 05:50 (Tylenol) 650 mg Q4H PRN PO 05/27/17 10:45 Ondansetron HCl 4 mg 4 mg Q6H PRN IV PUSH 05/27/17 10:45 05/30/17 08:59 Magnesium Sulfate 2 gm/Sodium Chloride 104 ml @ 100 mls/hr UNSCH PRN IV 05/27/17 10:45 (Magnesium Sulfate Inj/NS Inj) 104 ml @ 50 mls/hr UNSCH PRN IV 05/27/17 10:45 (Ecotrin Ec) 81 mg DAILY PO 05/28/17 09:00 05/29/17 09:21 (Synthroid) 25 mcg DAILY@0600 PO 05/28/17 06:00 05/31/17 05:49 (Pravachol) 80 mg DAILY PO 05/28/17 09:00 05/31/17 09:34 (Vitamin D3) 1,000 units BID PO 05/27/17 21:00 05/31/17 09:34 (Ferrous Sulfate) 325 mg DAILY PO 05/28/17 09:00 05/31/17 09:34 (Vitamin C) 1,000 mg BID PO 05/28/17 09:00 05/31/17 09:33 (Colace) 100 mg BID PO 05/28/17 21:00 05/30/17 21:29 (Theragran M Tab) 1 tab DAILY PO 05/29/17 09:00 05/31/17 09:34 (Milk Of Magnesia Liq) 30 ml DAILY PO 05/29/17 09:00 05/30/17 09:02 (Miralax) 17 gm DAILY PO 05/29/17 09:00 05/30/17 09:01 (Senokot) 8.6 mg HS PO 05/28/17 21:00 05/30/17 21:28 (Fleets Enema (Adult)) 133 ml UNSCH PRN RECTAL 7/6/17 09:15 (Pill Splitter) 1 ea UNSCH PRN OTHER 05/28/17 09:30 (Ultram) 50 mg Q8H PRN PO 05/29/17 11:15 05/29/17 21:43 (Lopressor) 12.5 mg BID PO 05/29/17 21:00 05/31/17 09:36 (Cordarone) 400 mg Q12HR PO 05/30/17 09:00 05/31/17 09:34 Vital Signs / I&O Vital Signs Date Time Temp Pulse Resp B/P Pulse Ox O2 Delivery O2 Flow Rate FiO2 05/31/17 10:00 73 05/31/17 09:00 76 05/31/17 08:00 98.6 73 16 104/62 96 05/31/17 08:00 71 05/31/17 07:44 96 Nasal Cannula 2.00 05/31/17 07:00 70 05/31/17 06:00 82 05/31/17 05:00 80 05/31/17 04:00 77 05/31/17 03:30 98.6 73 16 100/54 96 05/31/17 03:16 83 05/31/17 03:03 95 Nasal Cannula 05/31/17 02:00 80 05/31/17 01:00 76 05/31/17 00:00 77 05/30/17 23:30 93 Room Air 05/30/17 23:27 98.1 79 18 108/57 93 05/30/17 23:00 83 05/30/17 22:00 76 05/30/17 21:00 79 05/30/17 20:56 93 21 05/30/17 20:00 83 05/30/17 19:30 98.0 93 18 109/54 93 05/30/17 19:22 93 Room Air 05/30/17 19:12 81 05/30/17 18:00 85 05/30/17 17:00 76 05/30/17 16:00 98.1 83 20 118/62 92 05/30/17 16:00 75 05/30/17 15:34 94 Room Air 05/30/17 15:11 96 Nasal Cannula 2.00 05/30/17 15:00 69 05/30/17 14:00 75 05/30/17 13:00 75 05/30/17 12:00 73 I/O 05/30/17 05/30/17 05/30/17 05/31/17 05/31/17 05/31/17 07:00 15:00 23:00 07:00 15:00 23:00 Intake Total 450 ml 776 ml 240 ml Output Total 1000 ml 950 ml 450 ml Balance -550 ml -174 ml -210 ml Intake Oral 450 ml 725 ml 240 ml IV Total 51 ml Output Urine Total 1000 ml 950 ml 450 ml Stool Total 0 ml 0 ml # Bowel Movements 1 Physical Exam GENERAL: AAOx3 SKIN: Warm and dry. HEAD: Atraumatic. Normocephalic. EYES: Pupils equal and round. No scleral icterus. No injection or drainage. ENT: No nasal bleeding or discharge. Mucous membranes pink and moist. NECK: Trachea midline. No JVD. CARDIOVASCULAR: Regular rate and rhythm. RESPIRATORY: No accessory muscle use. Clear to auscultation. Breath sounds equal bilaterally. Sternotomy with wound vac GASTROINTESTINAL: Abdomen soft, non-tender, nondistended. Hepatic and splenic margins not palpable. MUSCULOSKELETAL: Extremities without clubbing, cyanosis, or edema. No obvious deformities. NEUROLOGICAL: Awake and alert. No obvious cranial nerve deficits. Motor grossly within normal limits. Five out of 5 muscle strength in the arms and legs. Normal speech. PSYCHIATRIC: Appropriate mood and affect; insight and judgment normal. Laboratory Laboratory Tests Test 05/29/17 05/30/17 04:35 05:45 White Blood Count 12.1 TH/MM3 8.2 TH/MM3 (4.0-11.0) (4.0-11.0) Red Blood Count 3.20 MIL/MM3 2.93 MIL/MM3 (4.00-5.30) (4.00-5.30) Hemoglobin 8.4 GM/DL 7.9 GM/DL (11.6-15.3) (11.6-15.3) Hematocrit 26.4 % 24.2 % (35.0-46.0) (35.0-46.0) Mean Corpuscular Volume 82.6 FL 82.5 FL (80.0-100.0) (80.0-100.0) Mean Corpuscular Hemoglobin 26.2 PG 27.1 PG (27.0-34.0) (27.0-34.0) Mean Corpuscular Hemoglobin 31.8 % 32.9 % Concent (32.0-36.0) (32.0-36.0) Red Cell Distribution Width 19.0 % 18.4 % (11.6-17.2) (11.6-17.2) Platelet Count 117 TH/MM3 97 TH/MM3 (150-450) (150-450) Mean Platelet Volume 8.2 FL 9.0 FL (7.0-11.0) (7.0-11.0) Neutrophils (%) (Auto) 84.0 % 71.3 % (16.0-70.0) (16.0-70.0) Lymphocytes (%) (Auto) 8.4 % 17.7 % (9.0-44.0) (9.0-44.0) Monocytes (%) (Auto) 7.3 % (0.0-8.0) 9.5 % (0.0-8.0) Eosinophils (%) (Auto) 0.1 % (0.0-4.0) 1.1 % (0.0-4.0) Basophils (%) (Auto) 0.2 % (0.0-2.0) 0.4 % (0.0-2.0) Neutrophils # (Auto) 10.2 TH/MM3 5.8 TH/MM3 (1.8-7.7) (1.8-7.7) Lymphocytes # (Auto) 1.0 TH/MM3 1.4 TH/MM3 (1.0-4.8) (1.0-4.8) Monocytes # (Auto) 0.9 TH/MM3 0.8 TH/MM3 (0-0.9) (0-0.9) Eosinophils # (Auto) 0.0 TH/MM3 0.1 TH/MM3 (0-0.4) (0-0.4) Basophils # (Auto) 0.0 TH/MM3 0.0 TH/MM3 (0-0.2) (0-0.2) CBC Comment DIFF FINAL AUTO DIFF Differential Comment AUTO DIFF CONFIRMED Sodium Level 139 MEQ/L 140 MEQ/L (136-145) (136-145) Potassium Level 4.2 MEQ/L 4.0 MEQ/L (3.5-5.1) (3.5-5.1) Chloride Level 105 MEQ/L 103 MEQ/L (98-107) (98-107) Carbon Dioxide Level 25.5 MEQ/L 31.8 MEQ/L (21.0-32.0) (21.0-32.0) Anion Gap 9 MEQ/L (5-15) 5 MEQ/L (5-15) Blood Urea Nitrogen 27 MG/DL (7-18) 18 MG/DL (7-18) Creatinine 1.17 MG/DL 0.83 MG/DL (0.50-1.00) (0.50-1.00) Estimat Glomerular Filtration 45 ML/MIN (>89) 67 ML/MIN (>89) Rate Random Glucose 100 MG/DL 91 MG/DL (74-106) (74-106) Calcium Level 8.2 MG/DL 8.1 MG/DL (8.5-10.1) (8.5-10.1) Phosphorus Level 3.1 MG/DL (2.5-4.9) Magnesium Level 2.1 MG/DL 2.0 MG/DL (1.5-2.5) (1.5-2.5) Thyroid Stimulating Hormone 3.410 uIU/ML 3rd Gen (0.358-3.740) Platelet Estimate LOW (NORMAL) Platelet Morphology Comment NORMAL (NORMAL) Ovalocytes 1+ (NORMAL) Assessment and Plan Problem List: (1) Aortic stenosis (2) CAD (coronary artery disease) (3) Diastolic CHF due to valvular disease (4) Hyperlipemia (5) Chronic kidney disease (6) Hypertension (7) S/P CABG x 1 (8) S/P AVR (aortic valve replacement) (9) Afib Assessment and Plan 1) s/p CABG (VILLA to LAD) and AVR with Intuity 21mm tissue valve POD #4 2) New onset afib post-procedure, CHADSVASc = 4 Will hold off on anti-coagulation at this time as her hemoglobin has been creeping lower, would like to see it stabilize before starting Planned to be discharged today by Dr. Lazar, she will get a CBC in a week, and reconsideration of anticoagulation can be done in the out patient setting on follow up Converted to sinus rhythm, Amiodarone changed to PO 3) New LBBB after AVR, most likely secondary to AVR No AV blocks noted on telemetry 4) Con't ASA/Statin/BB Tanner Horton DO May 31, 2017 11:17
== END 2017-05-31 13:15 | disposition home health service (06) | DRG 220 ==
LOC: HSDI 05-27 05:21 → HCVR 05-27 10:41 → HCIN 05-28 11:14
PROVIDERS: ADMIT Thoracic Surgery (Cardiothoracic Vascular Surgery); ATTEND Thoracic Surgery (Cardiothoracic Vascular Surgery)
PROC: 5A1221Z Performance of Cardiac Output, Continuous (ICD-10-PCS; 2017-05-27)
PROC: B246ZZ4 Ultrasonography of Right and Left Heart, Transesophageal (ICD-10-PCS; 2017-05-27)
PROC: 02RF08Z Replacement of Aortic Valve with Zooplastic Tissue, Open Approach (ICD-10-PCS; principal; 2017-05-27 07:02)
PROC: 02100Z9 Bypass Coronary Artery, One Artery from Left Internal Mammary, Open Approach (ICD-10-PCS; 2017-05-27 07:02)
DX: I35.0 Nonrheumatic aortic (valve) stenosis (principal); I13.0 Hypertensive heart and chronic kidney disease with heart failure and stage 1 through stage 4 chronic kidney disease, or unspecified chronic kidney disease; I50.30 Unspecified diastolic (congestive) heart failure; E11.22 Type 2 diabetes mellitus with diabetic chronic kidney disease; I97.89 Other postprocedural complications and disorders of the circulatory system, not elsewhere classified; I48.91 Unspecified atrial fibrillation; I44.7 Left bundle-branch block, unspecified; N18.3 Chronic kidney disease, stage 3 (moderate); I25.10 Atherosclerotic heart disease of native coronary artery without angina pectoris; E78.5 Hyperlipidemia, unspecified; I71.4 Abdominal aortic aneurysm, without rupture; M19.90 Unspecified osteoarthritis, unspecified site; Z87.891 Personal history of nicotine dependence
CPT/HCPCS: 71010; 76937; 80048; 82948; 83735; 84100; 84443; 85014; 85025; 85027; 86850; 86900; 86901; 86920; 86922; 88305; 88311; 93005; 93318; 94002; 94150; 94640; 94664; 94667; 94668; J0131; J0282; J0690; J1265; J1644; J1815; J1817; J1885; J1940; J2150; J2250; J2370; J2405; J2440; J2710; J2720; J2930; J3010; J3370; J3475; J3480; J7050; J7060; J7120; J7644; P9045; P9047